=== PATIENT | male | born 1955 | race Caucasian/White ===

== ENCOUNTER 2019-01-31 14:31 | Observation (INO) ==
[2019-01-31] MEDS ORDERED: IPRATROPIUM/ALBUTEROL 3 ML AMPUL.NEB NEB PRN (14:43)
[2019-01-31] MEDS ORDERED: NALOXONE HCL 0.4 MG/ML VIAL IV PRN (14:43)
[2019-01-31] MEDS ORDERED: ONDANSETRON 4 MG/2 ML VIAL IV PRN (14:43)
[2019-01-31] MEDS ORDERED: DEXTROSE 31 GM ORAL.SUSP PO PRN (14:48)
[2019-01-31] MEDS ORDERED: DEXTROSE 50% 50 ML VIAL IV PRN (14:48)
[2019-01-31] MEDS: 0.9 % SODIUM CHLORIDE 10 ML SYRINGE IV SCH ×2 (14:52→22:51)
[2019-01-31] MEDS ORDERED: hydrALAZINE 20 MG/ML VIAL IV PRN (14:58)
[2019-01-31] MEDS ORDERED: FUROSEMIDE 40 MG/4 ML VIAL IV ONE (15:02)
--- NOTE | 2019-01-31 15:02 | Internal Med History&Physical ---
Medical - H&P: [facility] Patient information: Note initiated : 01/31/19 at 2:58 pm Service Date, if different from initiated Date: [] Patient: Dru Burt 63 y/o M admitted on 01/31/19 for Hypertensive Crisis. Chief Complaint: [] History of present illness: Mr. Burt is a 63 year old M with history of hypertension diabetes chronic kidney disease presents to the hospital today from the nephrology clinic for uncontrolled hypertension. 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 The patient has been having progressive swelling in his lower extremities, that has gotten worse over the last 2 weeks. The patient's blood pressure has remained uncontrolled despite using multiple medications, the patient was therefore advised to be hospitalized for evaluation of edema as well as uncontrolled hypertension. The patient denies any headache, no changes in vision no difficulty in swallowing no palpitations no chest pain does have decreased effort tolerance due to lower extremity pain, denies any abdominal pain nausea vomiting denies any problems with bowels, does have increased frequency of micturition. Denies any skin rashes or joint pains new, denies any behavioral issues. He notes he is compliant with his medications. 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) Nausea (Chronic) Lacunar infarction (Chronic) Anxiety (Chronic) Difficulty concentrating (Chronic) Coordination impairments (Chronic) Dizziness (Chronic) Muscle weakness (Chronic) Charcot's joint of left foot (Chronic) White coat hypertension (Chronic) 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) Psoriasis (Chronic) Peripheral neuropathy (Chronic) Gallstones (Chronic) Hyperlipidemia (Chronic) Fecal occult blood test positive (Chronic) Hypertension (Acute) Diabetes mellitus, type II (Chronic) Charcot foot due to diabetes mellitus (Chronic) Chronic renal disease (Chronic) History of MRI of brain and brain stem (Acute) Surgical history: Past Surgical History (Last Reviewed 01/31/19 @ 14:31 by Fabienne Tran MD) S/P hernia repair (Chronic) Hx of appendectomy (Acute) S/P cholecystectomy (Acute) Pertinent family history: Family History (Last Reviewed 01/31/19 @ 14:31 by Fabienne Tran MD) Father Diabetes mellitus, Onset Age: 36 Cardiovascular disease Mother Diabetes mellitus Hypertension Brother No problems noted. Medical - H&P: Meds Home Medications Medication Instructions Recorded Confirmed Type blood sugar diagnostic strips See Dose Instructions .ROUTE 01/13/16 01/08/19 History .MEDSUPPLY pen needle, diabetic 32 gauge x See Dose Instructions .ROUTE 01/13/16 01/08/19 History 5/32" .MEDSUPPLY cholecalciferol (vitamin D3) 5,000 5,000 unit PO QDAY cap 01/14/16 01/31/19 History unit capsule coconut oil (bulk) See Dose Instructions .ROUTE 01/14/16 01/31/19 History .MEDSUPPLY cyanocobalamin (vit B-12) 5,000 500 mcg SUBLINGUAL QDAY 03/16/16 01/31/19 History mcg/mL sublingual drops HYDROcodone/APAP 5/325MG [[place] 1 tab PO Q4HP PRN #14 tab 05/06/18 01/31/19 Rx 5-325Mg] rivaroxaban 20 mg tablet 20 mg PO QDAY 08/31/18 01/31/19 History insulin lispro See Rx Instructions .ROUTE .COMPLEX 10/03/18 01/08/19 History meclizine 25 mg chewable tablet 25 mg PO QDAY PRN 10/03/18 01/31/19 History clopidogrel 75 mg tablet 75 mg PO QDAY 12/04/18 01/31/19 History insulin degludec (U-100) 100 25 unit SUB-Q QPM ml 12/04/18 01/31/19 History unit/mL (3 mL) subcutaneous pen losartan 100 mg tablet 100 mg PO QDAY #30 tab 01/09/19 01/31/19 Rx carvedilol 6.25 mg tablet 6.25 mg PO BID #60 tab 01/18/19 01/31/19 Rx amlodipine 5 mg tablet 5 mg PO QDAY #30 tab 01/31/19 01/31/19 Rx furosemide 20 mg tablet 40 mg PO QDAY #30 tab 01/31/19 01/31/19 Rx hydralazine 50 mg tablet 50 mg PO BID 30 Days #120 tab 01/31/19 01/31/19 Rx Allergies Allergy/AdvReac Type Severity Reaction Status Date / Time codeine [CODEINE] AdvReac Mild ABDOMINAL Verified 01/31/19 14:50 MUSCLE SPASMS hay Allergy Uncoded 01/31/19 15:04 Medical - H&P: Exam - Constitutional Exam: GENERAL: The patient is a well-developed, well-nourished in no apparent distress. Is alert and oriented x3. VITAL SIGNS: Reviewed and as noted elsewhere. HEENT: Head is normocephalic and atraumatic. Extraocular muscles are intact. Pupils are equal, round, and reactive to light. Nares appeared normal. Mouth appears any without lesions. Mucous membranes are moist. NECK: Normal to inspection, Supple, No lymphadenopathy or thyromegaly. LUNGS: Air entry equal on both sides, no wheezing, crackles or rhonchi noted. No accessory muscles of respiration HEART: Regular rate and rhythm normal, S1 and S2 heard, no Gallop, S3 or Rub Noted, No Gross murmur heard. ABDOMEN: Soft, nontender, and nondistended. Positive bowel sounds. No hepatosplenomegaly was noted. EXTREMITIES: No cyanosis, clubbing, rash, edema present +++ NEUROLOGIC: Cranial nerves II through XII are grossly intact. Motor and Sensory System Grossly Intact PSYCHIATRIC: Normal affect, Normal Mood. Appropriate Behavior. SKIN: No ulceration or wounds noted, No jaundice, No rash noted. Medical - H&P: A/P - Narrative A/P Narrative: A/P Hypertensive Urgency/ Uncontrolled Hypertension -Monitor on tele, get labs, bnp, tsh, -resume home meds, although pt notes he is very compliant, will for now resume home meds and get a response. -IV hydralazine prn for high bp -nephrology consulted -Present meds per list, Losartan 100, amolodipine 5mg daily, lasix 40mg, coreg 6.25 bid, hydralazine 50mg bid. -Renal USG done 3 yrs ago had elevated restive indices, but no e/o stenosis -will repeat renal artery doppler. -not sure of other workup for secondary HTN is done, will review with nephrology. CKD -Creat at baseline, nephrology to follow Edema feet/ Acute CHF secondary to uncontrolled HTN - due to uncontrolled HTN, new onset, check bnp, get Chest x ray and echo - no crackles on exam but jvp was raised -IV lasix to be given today DM -SSI insulin for glucose control TIA - started on xareltro by his PCP - also on plavix -resume same, will need to review dose of xarelto, or consider eliquis. HLD Diabetic Neuropathy -Stable, resume home meds DVT - on anticoagulation Full code carb consistent/ renal diet. Social History - Social History marital status: occupational status: employed occupation: [employer] - Tobacco smoking status: Former smoker - Quit Details quit date: 11/28/92 - Alcohol alcohol intake frequency: 0-2 drinks per day - Substance use substance use type: does not use
[2019-01-31 15:25] LABS: Basophils # (Auto) 0 K/mcL (0.0-0.3); Basophils % (Auto) 0.6 % (0.0-2.0); Eosinophils # (Auto) 0.2 K/mcL (0.0-0.7); Eosinophils % (Auto) 3.2 % (0.0-7.0); Granulocytes % (Auto) 54.1 % (38.0-78.0); Lymphocytes # (Auto) 2.4 K/mcL (1.5-4.8); Lymphocytes % (Auto) 33.7 % (15.5-49.0); Mean Cell Volume 83.9 fL (80.0-100.0); Mean Corpuscular HGB Conc 33.6 g/dL (31.0-36.0); Monocytes # (Auto) 0.6 K/mcL (0.1-0.9); Monocytes % (Auto) 8.4 % (1.0-12.0); Platelet Count 218 K/mcL (140-440); RBC 3.28 M/mcL (4.50-5.90); Red Cell Distribution Width 13.7 % (11.5-14.5)
--- NOTE | 2019-01-31 15:47 | XRay Report ---
HISTORY: Congestive heart failure and hypertensive crisis FINDINGS: The heart is upper limits of normal in size and has increased in size since 02/15/09. The pulmonary vessels are mildly engorged. There is no pulmonary edema, pneumonia or pleural effusion. No adenopathy is detected. IMPRESSION: Mild pulmonary vascular congestion Interpreted and Authenticated by: Rickey Ball 01/31/19
[2019-01-31 16:06] LABS: ALT/SGPT 41 U/l (0-40); Albumin/Globulin Ratio 1.3 (1.0-2.3); Alkaline Phosphatase 184 U/L (39-117); Bilirubin,Direct < 0.2 mg/dL (0.0-0.3); Blood Urea Nitrogen 39 mg/dl (8-23); Gamma Glutamyl Transpeptidase 252 U/L (8-61)
[2019-01-31] MEDS ORDERED: hydrALAZINE 20 MG/ML VIAL ONE (17:41)
[2019-01-31] MEDS: hydrALAZINE 20 MG/ML VIAL IV PRN (17:41)
[2019-01-31] MEDS: INSULIN LISPRO 1 UNIT/0.01 ML UNIT SQ SCH ×2 (17:45→20:28)
[2019-01-31] MEDS: DOXAZOSIN 4 MG TABLET PO SCH ×2 (18:41→20:26)
[2019-01-31] MEDS ORDERED: DOXAZOSIN 4 MG TABLET PO SCH (21:00)
[2019-02-01] MEDS: 0.9 % SODIUM CHLORIDE 10 ML SYRINGE IV SCH ×4 (05:21→20:04)
--- NOTE | 2019-02-01 07:43 | Ultrasound Report ---
History: Hypertensive crisis, diabetes, evaluate for renal artery stenosis FINDINGS: There is normal blood flow in the aorta. The visualized portion of the aorta is normal in caliber. There is a large amount of bowel gas throughout the abdomen which makes the study technically difficult. The right kidney measures 5.8 x 5.9 x 12.5 cm and the left measures 5.0 x 5.4 x 11.9 cm. The cortex is normal in thickness bilaterally but there is mild increased echogenicity of the renal parenchyma. Visualized portions of the renal arteries are normal in caliber and have normal flow velocities. Normal interlobar blood flow is also present in both kidneys. The resistive indices are elevated bilaterally. The right-sided ranges from 0.74-0.75. In the left side ranges from 0.75-0.76. IMPRESSION: No evidence renal artery stenosis Chronic medical renal disease with echogenic renal parenchyma and elevated resistive indices bilaterally. Interpreted and Authenticated by: Rickey Ball 02/01/19
[2019-02-01] MEDS: INSULIN LISPRO 1 UNIT/0.01 ML UNIT SQ SCH ×4 (07:53→20:04)
[2019-02-01] MEDS: FUROSEMIDE 40 MG/4 ML VIAL IV SCH ×2 (08:50→15:57)
[2019-02-01] MEDS: CARVEDILOL 6.25 MG TABLET PO SCH ×2 (08:50→17:24)
[2019-02-01 08:51] LABS: Basophils # (Auto) 0 K/mcL (0.0-0.3); Basophils % (Auto) 0.3 % (0.0-2.0); Eosinophils # (Auto) 0.2 K/mcL (0.0-0.7); Eosinophils % (Auto) 2.8 % (0.0-7.0); Granulocytes % (Auto) 55.4 % (38.0-78.0); Lymphocytes # (Auto) 2.2 K/mcL (1.5-4.8); Lymphocytes % (Auto) 33.7 % (15.5-49.0); Mean Cell Volume 85.4 fL (80.0-100.0); Mean Corpuscular HGB Conc 32.8 g/dL (31.0-36.0); Monocytes # (Auto) 0.5 K/mcL (0.1-0.9); Monocytes % (Auto) 7.8 % (1.0-12.0); Platelet Count 205 K/mcL (140-440); RBC 3.16 M/mcL (4.50-5.90); Red Cell Distribution Width 13.6 % (11.5-14.5)
[2019-02-01] MEDS ORDERED: LABETALOL 100 MG TABLET PO SCH (09:00)
[2019-02-01] MEDS ORDERED: amLODIPine 5 MG TABLET PO SCH (09:00)
[2019-02-01] MEDS ORDERED: hydrALAZINE 25 MG TABLET PO SCH (09:00)
[2019-02-01] MEDS: RIVAROXABAN 15 MG TABLET PO SCH (09:07)
[2019-02-01] MEDS: LOSARTAN 50 MG TABLET PO SCH (09:07)
[2019-02-01] MEDS: CYANOCOBALAMIN (VITAMIN B-12) 500 MCG TABLET PO SCH (09:07)
[2019-02-01] MEDS: CLOPIDOGREL 75 MG TABLET PO SCH (09:07)
[2019-02-01 09:10] LABS: ALT/SGPT 31 U/l (0-40); Albumin 3.5 gm/dL (3.2-5.2); Albumin/Globulin Ratio 1.3 (1.0-2.3); Alkaline Phosphatase 164 U/L (39-117); Bilirubin,Direct < 0.2 mg/dL (0.0-0.3); Blood Urea Nitrogen 41 mg/dl (8-23); Gamma Glutamyl Transpeptidase 224 U/L (8-61); Uric Acid 7.6 mg/dL (2.5-8.0)
[2019-02-01] MEDS: hydrALAZINE 20 MG/ML VIAL IV PRN (12:20)
--- NOTE | 2019-02-01 15:56 | Internal Med Progress Note ---
Medical - PN: Subj Patient information: Note initiated : 02/01/19 at 3:53 pm Service Date, if different from initiated Date: [] Patient: Dru Burt 63 y/o M admitted on 01/31/19 for Hypertensive Crisis. Chief Complaint: [] Interval history: Mr. Burt is a 63 year old M with history of hypertension diabetes chronic kidney disease presents to the hospital today from the nephrology clinic for uncontrolled hypertension. 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 The patient has been having progressive swelling in his lower extremities, that has gotten worse over the last 2 weeks. The patient's blood pressure has remained uncontrolled despite using multiple medications, the patient was therefore advised to be hospitalized for evaluation of edema as well as uncontrolled hypertension. The patient denies any headache, no changes in vision no difficulty in swallowing no palpitations no chest pain does have decreased effort tolerance due to lower extremity pain, denies any abdominal pain nausea vomiting denies any problems with bowels, does have increased frequency of micturition. Denies any skin rashes or joint pains new, denies any behavioral issues. He notes he is compliant with his medication 02/01 Patient seen and examined, no acute overnight events patient diuresing well has no new complaints or concerns Echo is negative normal ejection fraction Renal Doppler is normal, no stenosis Patient did not need any IV antihypertensives yesterday night did need one today Home medications resumed monitor for 1 more day anticipate discharge tomorrow Patient started on doxazosin 8 mg at bedtime discontinue oral hydralazine, discontinue oral labetalol given patient is already on Coreg Pertinent ROS: Denies headache, dizziness Denies chest pain, palpitations Denies cough or shortness of breath Denies abdominal pain, nausea or vomiting. - Constitutional Vitals: Vital Signs Temp Resp BP Pulse Ox 97.8 F 16 166/58 94 02/01/19 12:02 02/01/19 12:02 02/01/19 13:00 02/01/19 12:02 Period Temp Pulse Resp BP Sys/Warner Pulse Ox Last 24 Hr 97.8 F-99.2 F 16-18 163-208/49-78 89-98 Intake and Output 03/07/19 03/07/19 03/07/19 05:59 13:59 21:59 Intake Total 420 Output Total 1600 1150 Balance -1600 -730 Intake & Output: Intake & Output 02/01/19 02/01/19 02/01/19 05:59 13:59 21:59 Intake Total 420 Output Total 1600 1150 Balance -1600 -730 Intake: Oral 420 Output: Void Amount 1600 1150 Other: Meal Lunch Percent of Meal Consumed 100% Feeding Ability Independent Urine Appearance Clear Urine Color Bright Yellow Urine Odor Normal Stool Size Copious Stool Color Brown Stool Consistency Soft # Bowel Movements 1 Exam: Constitutional; Afebrile, cooperative, alert, not in distress. Respiratory system: Air Entry equal on both sides, No crackles or wheezing, no rhonchi. CVS- Rate rhythm regular, S1,S2 heard, no gallop, no rub. 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 Medical - PN: Obj Da - Labs CBC & Chem 7: 02/01/19 08:23 02/01/19 08:23 Labs: Abnormal Lab Results 02/01/19 02/01/19 01/31/19 08:23 08:23 14:55 RBC 3.16 L Hgb 8.9 L Hct 27.0 L BUN 41 H 39 H Creatinine 3.3 H 3.1 H Glucose 120 H GGT 224 H 252 H ALT 41 H Alkaline Phosphatase 164 H 184 H NT-Pro-B Natriuret Pep 1664.0 H 01/31/19 14:55 RBC 3.28 L Hgb 9.2 L Hct 27.5 L BUN Creatinine Glucose GGT ALT Alkaline Phosphatase NT-Pro-B Natriuret Pep Meds: Medications Albuterol/Ipratropium (Duoneb) 3 ml NEB Q4HRT PRN PRN Reason: Shortness Of Breath Or Wheezing Amlodipine Besylate (Norvasc) 5 mg PO QDAY [facility]il[facility] ([facility]g) [facility] Last Admin: 02/01/19 08:50 Dose: 6.25 mg Documented by: Clopidogrel Bisulfate (Plavix) 75 mg PO QDAY [facility] Last Admin: 02/01/19 09:07 Dose: 75 mg Documented by: Cyanocobalamin (Vitamin B-12) 500 mcg PO QDAY [facility] Last Admin: 02/01/19 09:07 Dose: 500 mcg Documented by: Dextrose (Dextrose 50%) 0 ml IV UD PRN PRN Reason: Hypoglycemia Diagnostic Test (Pha) (Accu-Chek) 1 each FS [facility] Last Admin: 02/01/19 12:19 Dose: 1 each Documented by: Doxazosin Mesylate (Cardura) 8 mg PO HS [facility] Furosemide (Lasix) 40 mg IV BIDD [facility] Last Admin: 02/01/19 08:50 Dose: 40 mg Documented by: Glucose (Insta-Glucose) 15 gm PO PRN PRN PRN Reason: Hypoglycemia Hydralazine HCl (Apresoline) 10 - 20 mg IV Q4-6HP PRN PRN Reason: Hypertension Last Admin: 02/01/19 12:20 Dose: 10 mg Documented by: Insulin Human Lispro (Humalog) 0 unit SQ [facility]; Protocol Last Admin: 02/01/19 12:20 Dose: 3 units Documented by: Losartan Potassium (Cozaar) 100 mg PO QDAY [facility] Last Admin: 02/01/19 09:07 Dose: 100 mg Documented by: Naloxone HCl (Narcan) 0.1 mg IV Q2MIN PRN PRN Reason: Opiate Reversal Ondansetron HCl (Zofran) 4 mg IV Q4HP PRN PRN Reason: Nausea And Vomiting Last Admin: 01/31/19 22:51 Dose: 4 mg Documented by: Rivaroxaban (Xarelto) 15 mg PO DAILY [facility] Last Admin: 02/01/19 09:07 Dose: 15 mg Documented by: Sodium Chloride (Saline Flush) 10 ml IV Q8 [facility] Last Admin: 02/01/19 12:21 Dose: 10 ml Documented by: Medical - PN: A/P - Time Spent With Patient Total time spent is greater than 50% in coordination of care (as documented) at patient's floor/unit and/or counseling patient: - Narrative A/P Narrative: A/P Hypertensive Urgency/ Uncontrolled Hypertension -Continue to monitor on telemetry IV Lasix to continue patient having good response Started on doxazosin, 4 mg last night 8 mg today discontinue hydralazine as patient is not responding well to this medication, discontinue labetalol as patient is already on Coreg continue amlodipine 5 mg and losartan CKD -Creat at baseline, nephrology to follow Edema feet/ Acute CHF secondary to uncontrolled HTN -Echo shows normal ejection fraction, continue IV Lasix responding well clinically DM -SSI insulin for glucose control TIA - started on xareltro by his PCP - also on plavix Resume Xarelto at 15 mg once a day dose adjusted for renal function. HLD Diabetic Neuropathy -Stable, resume home meds DVT - on anticoagulation Full code carb consistent/ renal diet. Medical - PN: Qual - VTE Deep Vein Thrombosis/Pulmonary Embolism Present on Admission: No
--- NOTE | 2019-02-01 17:19 | Nephrology Progress Note ---
Subjective Patient information: Note initiated : 02/01/19 at 5:15 pm Service Date, if different from initiated Date: [] Patient: Dru Burt 63 y/o M admitted on 01/31/19 for Hypertensive Crisis. Chief Complaint: [] Principal diagnosis: Hypertensive urgency Interval history: [facility] his [facility] issues and he was hospitalised on my request given persistently elevated BP above 200 systolic and worsening fluid status, he was also having ringing in his ear further work up revealed mild HF on CXR and he had 2-3+ edema with 9-10 lb weight gain his home antihypertensives were continued, IV diuretics were started and doxazosin added with some improvement of his BP he denies SOB, this am, no CP denies dizziness no urinary issues echo report pending, renal doppler negative for renal US Pertinent ROS: ABOVE Objective - Vital Signs Vital signs: Vital Signs Temp Resp BP Pulse Ox 02/01/19 15:53 98.4 F 16 173/62 96 02/01/19 13:00 166/58 02/01/19 12:07 182/63 02/01/19 12:02 97.8 F 16 182/63 94 02/01/19 11:59 196/69 02/01/19 07:20 95 02/01/19 07:01 98.8 F 16 177/56 95 02/01/19 06:01 176/59 97 02/01/19 04:29 90 02/01/19 04:01 170/49 89 L 02/01/19 03:31 166/52 94 02/01/19 03:01 180/64 93 02/01/19 02:31 185/65 96 02/01/19 02:01 171/65 95 02/01/19 01:31 165/66 93 02/01/19 01:22 91 02/01/19 01:01 174/67 94 02/01/19 00:31 163/53 94 02/01/19 00:01 177/60 93 01/31/19 23:31 186/71 94 01/31/19 23:01 185/56 92 01/31/19 22:31 166/57 96 01/31/19 22:27 95 01/31/19 22:01 186/66 97 01/31/19 21:31 184/77 97 01/31/19 21:01 174/55 97 01/31/19 20:41 184/70 97 01/31/19 20:31 184/70 96 01/31/19 20:01 99.2 F H 18 186/65 95 01/31/19 20:00 92 01/31/19 19:31 175/67 96 01/31/19 19:01 183/78 96 01/31/19 18:31 176/66 97 01/31/19 18:01 186/68 98 01/31/19 17:31 188/63 96 Intake and Output 02/01/19 02/01/19 02/01/19 05:59 13:59 21:59 Intake Total 420 120 Output Total 1600 1150 375 Balance -5348 -070 -788 Intake: Oral 420 120 Output: Void Amount 1600 1150 375 Other: Meal Lunch Percent of Meal Consumed 100% Feeding Ability Independent Urine Appearance Clear Clear Urine Color Bright Yellow Bright Yellow Urine Odor Normal Normal Stool Size Copious Stool Color Brown Stool Consistency Soft # Bowel Movements 1 Intake & Output: Intake & Output 02/01/19 02/01/19 02/01/19 05:59 13:59 21:59 Intake Total 420 120 Output Total 1600 1150 375 Balance -3079 -619 -086 Intake: Oral 420 120 Output: Void Amount 1600 1150 375 Other: Meal Lunch Percent of Meal Consumed 100% Feeding Ability Independent Urine Appearance Clear Clear Urine Color Bright Yellow Bright Yellow Urine Odor Normal Normal Stool Size Copious Stool Color Brown Stool Consistency Soft # Bowel Movements 1 - General Appearance General appearance: appears started age, chronically ill, frail EENT: mucous membranes moist Neck: no JVD Respiratory: clear Cardiology: no rub, edema, normal S1, normal S2 Gastrointestinal: no tenderness, no guarding Integumentary: warm and dry, hyperpigmentation, chronic venous stasis Neurologic: alert and oriented x3 Musculoskeletal: no erythema, no cyanosis Psychiatric: mood/affect appropriate - Lab 02/01/19 08:23 02/01/19 08:23 Most recent lab results Calcium 9.0 mg/dl (8.6-10.4) 02/01/19 08:23 Phosphorus 4.2 mg/dL (2.7-4.5) 02/01/19 08:23 Magnesium 1.7 mg/dL (1.6-2.5) 03/07/19 08:23 Assessment and Plan (1) Hypertensive urgency Status: Acute (2) CKD (chronic kidney disease), stage IV Status: Acute (3) Anemia Status: Acute - Narrative A/P Narrative: s.creatinine 3.3, egfr is 19ml/min per CKD EPI equation renal function stable for now but has declined overall Uncontrolled HTN: agree with adding doxazosin and holding hydralazine as no response ct IV diuresis given s/o significant fluid excess if HR permits and BP remains elevated will add clonidine low sodium diet will follow along anemia: tsat at 25% when checked on 12/28, b12 normal, serum and urine VALE negative likely from CKD, if BP permits will start aranesp if Hb drops below 9.0 will follow along
[2019-02-01] MEDS ORDERED: DOXAZOSIN 4 MG TABLET PO SCH (21:00)
[2019-02-02] MEDS: 0.9 % SODIUM CHLORIDE 10 ML SYRINGE IV SCH (05:11)
[2019-02-02] MEDS: CARVEDILOL 6.25 MG TABLET PO SCH (07:39)
[2019-02-02] MEDS: hydrALAZINE 20 MG/ML VIAL IV PRN (07:39)
[2019-02-02] MEDS: FUROSEMIDE 40 MG/4 ML VIAL IV SCH (07:39)
[2019-02-02] MEDS: INSULIN LISPRO 1 UNIT/0.01 ML UNIT SQ SCH ×2 (07:40→11:20)
[2019-02-02] MEDS ORDERED: CARVEDILOL 6.25 MG TABLET PO SCH (08:00)
[2019-02-02] MEDS ORDERED: CARVEDILOL 6.25 MG TABLET PO ONE (08:17)
[2019-02-02] MEDS ORDERED: amLODIPine 5 MG TABLET PO SCH (09:00)
[2019-02-02] MEDS: RIVAROXABAN 15 MG TABLET PO SCH (09:09)
[2019-02-02] MEDS: CLOPIDOGREL 75 MG TABLET PO SCH (09:09)
[2019-02-02] MEDS: CYANOCOBALAMIN (VITAMIN B-12) 500 MCG TABLET PO SCH (09:09)
[2019-02-02] MEDS: LOSARTAN 50 MG TABLET PO SCH (09:10)
--- NOTE | 2019-02-02 10:30 | Discharge Summary ---
Medical - DS: Prov Patient information: Note initiated : 02/02/19 at 10:27 am Service Date, if different from initiated Date: [] Patient: Dru Burt 63 y/o M admitted on 01/31/19 for Hypertensive Crisis. Chief Complaint: [] Date of admission: 01/31/19 14:31 Discharge date: 02/02/19 Primary care physician: Wong Maguire Consults: 01/31/19 14:47 Consult to Physician [CONS] Routine Comment: Uncontrolled HTN Consulting Provider: Fabienne Tran Reason For Exam: Physician to Consult Medical - DS: Meds - Discharge Medications Prescriptions: RX: amLODIPine BESYLATE [Amlodipine Besylate] 10 mg PO QDAY #30 tablet RX: Carvedilol [Coreg] 12.5 mg PO BIDCC #60 tablet RX: Doxazosin [Cardura] 8 mg PO HS #60 tablet Active and Home Medications: Home Medications cholecalciferol (vitamin D3) 5,000 unit capsule 5,000 unit PO QDAY cap 01/14/16 [History Confirmed 02/01/19 Last Taken Unknown] cyanocobalamin (vit B-12) 5,000 mcg/mL sublingual drops 500 mcg SUBLINGUAL QDAY 03/16/16 [History Confirmed 02/01/19 Last Taken Unknown] rivaroxaban 20 mg tablet 20 mg PO QDAY 08/31/18 [History Confirmed 01/31/19 Last Taken Unknown] insulin lispro See Rx Instructions .ROUTE .COMPLEX 10/03/18 [History Confirmed 02/01/19 Last Taken Unknown] meclizine 25 mg chewable tablet 25 mg PO QDAY PRN 10/03/18 [History Confirmed 02/01/19 Last Taken Unknown] clopidogrel 75 mg tablet 75 mg PO QDAY 12/04/18 [History Confirmed 01/31/19 Last Taken Unknown] losartan 100 mg tablet 100 mg PO QDAY #30 tab 01/09/19 [Rx Confirmed 01/31/19 Last Taken Unknown] carvedilol 6.25 mg tablet 6.25 mg PO BID #60 tab 01/18/19 [Rx Confirmed 01/31/19 Last Taken Unknown] Labetalol [Trandate] 100 mg PO BID 01/31/19 [History Confirmed 01/31/19 Last Taken Unknown] RX: Furosemide [Lasix] 20 mg PO QDAY 01/31/19 [History Confirmed 01/31/19 Last Taken Unknown] hydralazine 50 mg tablet 50 mg PO BID 30 Days #120 tab 01/31/19 [Rx Confirmed 01/31/19 Last Taken Unknown] RX: amLODIPine BESYLATE [Amlodipine Besylate] 5 mg PO QDAY 02/01/19 [History Confirmed 02/01/19 Last Taken Unknown] Medical - DS: Hosp Hospital course: Mr. Burt is a 63 year old M with history of hypertension diabetes chronic kidney disease presented to the hospital today from the nephrology clinic for uncontrolled hypertension. 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 The patient has been having progressive swelling in his lower extremities, that has gotten worse over the last 2 weeks. The patient's blood pressure has remained uncontrolled despite using multiple medications, the patient was therefore advised to be hospitalized for evaluation of edema as well as uncontrolled hypertension. The patient denies any headache, no changes in vision no difficulty in swallowing no palpitations no chest pain does have decreased effort tolerance due to lower extremity pain, denies any abdominal pain nausea vomiting denies any problems with bowels, does have increased frequency of micturition. Denies any skin rashes or joint pains new, denies any behavioral issues. He notes he is compliant with his medication 02/01 Patient seen and examined, no acute overnight events patient diuresing well has no new complaints or concerns Echo is negative normal ejection fraction Renal Doppler is normal, no stenosis Patient did not need any IV antihypertensives yesterday night did need one today Home medications resumed monitor for 1 more day anticipate discharge tomorrow Patient started on doxazosin 8 mg at bedtime discontinue oral hydralazine, discontinue oral labetalol given patient is already on Coreg 02/02 Pt seen examined, overnight bp remained stable, this AM a bit high, but responded to resumption of home meds Pt stable for discharge In Summary Pt admitted to the hospital for uncontrolled hypertension/ Hypertensive urgency At the time of discharge pt bp is stable He will be discharged on amlodipine 10mg once daily (dose increased from 5mg once daily) Coreg 12.5mg twice daily (dose increased from 6.25mg twice daily) He has been started on doxazosin 8mg at bed time. (new medication) He will continue on losartan 100mg daily continue on lasix 20mg daily, can be increased to 40mg daily as outpatient if edema worsens. We are stopping hydralazine as well as labetalol. I am not sure why the patient is on xarelto, h/o TIA, no h/o afib? that I could see, pt is already on plavix. I am not making any changes to his regime at this time. Defer management to PCP. Discharge diagnosis: Uncontrolled Hypertension - Time Spent with Patient Total time spent providing and/or coordinating discharge services: Greater than 30 minutes Medical - DS: Exam - Constitutional Vitals: Vital Signs Temp Resp BP Pulse Ox 02/02/19 09:21 148/56 02/02/19 07:27 194/65 02/02/19 07:25 98.4 F 16 195/70 95 02/02/19 03:58 168/59 02/02/19 03:56 97.8 F 175/62 95 02/02/19 00:09 98.7 F 18 157/56 97 02/01/19 19:31 98.3 F 18 155/57 98 02/01/19 15:53 98.4 F 16 173/62 96 02/01/19 13:00 166/58 02/01/19 12:07 182/63 02/01/19 12:02 97.8 F 16 182/63 94 02/01/19 11:59 196/69 Intake and Output 02/01/19 02/02/19 02/02/19 21:59 05:59 13:59 Intake Total 360 960 240 Output Total 1075 950 450 Balance -715 10 -210 Intake: Oral 360 960 240 Output: Void Amount 1075 950 450 Other: Meal Dinner Nourishment/Supplement Breakfast Percent of Meal Consumed 100% 100% 100% Feeding Ability Assist with Tray Set Up Independent Independent Nourishment/Supplement name tuna fish sandwich Urine Appearance Clear Clear Clear Urine Color Bright Yellow Bright Yellow Bright Yellow Urine Odor Normal Normal Normal Weight 183 lb 6.4 oz 182 lb 4.8 oz Patient Weight 02/03/19 05:59 Weight 182 lb 4.8 oz Additional comments: Constitutional; Afebrile, cooperative, alert, not in distress. Eyes- No icterus, , No periorbital swelling Ears- Ext ear normal, hearing normal to conversation. Neck- Midline trachea, supple Respiratory system: Air Entry equal on both sides, No crackles or wheezing, no rhonchi. CVS- Rate rhythm regular, S1,S2 heard, no gallop, no rub. Abdomen- Soft nontender abdomen, no organomegaly, no tenderness, no guarding or rigidity, [employer] DEVELOPER- AOOx3, moving all extremities, no gross focal deficit noted. Medical - DS: A/P - Patient/Caregiver Discharge Instructions Activity: increase activity as tolerated Diet: Low Sodium (2gm), Consistent Carbohydrate Additional Instructions: Please follow a low sodium diet, We have made some changes to your Blood pressure medication regime amlodipine 10mg once daily (dose increased from 5mg once daily) Coreg 12.5mg twice daily (dose increased from 6.25mg twice daily) You have been started on doxazosin 8mg at bed time. (new medication) continue on losartan 100mg daily continue on lasix 20mg daily, We are stopping hydralazine as well as labetalol. Follow up with Dr Tran in 1 week for continued management of bp Follow up with Dr Maguire, I am not sure if you need to be on xareltro, also dosing needs to be adjusted for renal function if this is continued, please talk to your PCP with regards to this medication. - Follow up Plan Follow up with: Fabienne Tran MD [Physician] - 02/08/19 1:30 pm Wong Maguire MD [Primary Care Provider] - 02/13/19 9:45 am Disposition: Home, Self-Care Prognosis: Fair Rehab Potential: Fair I certify that the patient requires SNF services: No Overall status at discharge: patient is progressing back to baseline Medical - DS: Qual - VTE Deep Vein Thrombosis/Pulmonary Embolism Present on Admission: No
== END 2019-02-02 12:00 | disposition home or self-care (01) ==
LOC: ICU
PROVIDERS: ADMIT Internal Medicine; ATTEND Internal Medicine

== ENCOUNTER 2019-08-13 10:19 | Inpatient (IN) ==
--- NOTE | 2019-08-13 10:33 | Emergency Department Note ---
Weakness HPI - General Chief complaint: Weakness Stated complaint: falls, weakness Time Seen by Provider: 08/13/19 10:31 Source: patient, family Mode of arrival: wheelchair Limitations: no limitations - History of Present Illness HPI Narrative: Patient comes by private car because of several days of increased weakness, difficulty ambulating with several falls and some confusion. reports that over this past year he has had some gradual decline but on Tuesday 3 days ago he was wobbly on his legs. She went to work. Patient called around 3 PM to tell him that he had fallen and could not get up. This was in the bathroom and he had a sore thigh after this. He had had poor oral intake since she had left him in the morning. 2 days ago, Tuesday, she helped him eat and drink regularly. Yesterday he slept until noon. He got up to leave the bedroom but fell again causing a bruised knee. Because of these changing symptoms, history of a stroke and TIAs etc., patient is brought in for further evaluation here. REVIEW OF SYSTEMS: Denies fever or chills. He has some chronic night sweats. Denies blurry vision, double vision Denies chest pain, palpitations Denies cough, shortness of breath, wheeze Denies abdominal pain, nausea, vomiting, diarrhea, constipation, hematochezia Denies dysuria. He has some chronic nocturia about every 2 hours. Denies back pain Denies headaches, lightheaded/dizziness. Has generalized weakness. No specific unilateral weakness. Denies anxiety. Has some situational depressive characteristics but no long- standing diagnoses or treatment. - Related Data Home Medications Medication Instructions Recorded Confirmed cholecalciferol (vitamin D3) 5,000 5,000 unit PO QDAY cap 01/14/16 07/18/19 unit capsule clopidogrel 75 mg tablet 75 mg PO QDAY 12/04/18 07/18/19 insulin aspart U-100 100 unit/mL 1 each SUB-Q DAILY #15 ml 06/07/19 07/18/19 (3 mL) subcutaneous pen insulin degludec 100 unit/mL (3 20 unit SUB-Q QDAY #15 ml 06/07/19 07/18/19 mL) subcutaneous pen Losartan [Cozaar] 100 mg PO DAILY 06/25/19 07/18/19 amLODIPine BESYLATE [Amlodipine 5 mg PO DAILY 06/25/19 07/18/19 Besylate] Previous Rx's Medication Instructions Recorded clonidine 0.2 mg/24 hr weekly 1 patch TRANSDERMA QWEEK #4 patch 07/18/19 transdermal patch furosemide 40 mg tablet 40 mg PO QDAY #30 tab 07/18/19 sodium bicarbonate 650 mg tablet 1,300 mg PO BID #120 tab 07/18/19 Allergies Allergy/AdvReac Type Severity Reaction Status Date / Time codeine [CODEINE] AdvReac Mild ABDOMINAL Verified 08/13/19 10:24 MUSCLE SPASMS Past Medical History - Past Medical History [facility] Narrative: Medical History (Last Updated 04/12/19 @ 13:43 by Susan Myers MD) Malaise and fatigue (Chronic) Anorexia (Chronic) Confusion (Chronic) Rapid weight loss (Chronic) skilled nursing (current) use of insulin (Chronic) Nausea (Chronic) Lacunar infarction (Chronic) Anxiety (Chronic) Difficulty concentrating (Chronic) Coordination impairments (Chronic) Dizziness (Chronic) Muscle weakness (Chronic) Charcot's joint of left foot (Chronic) White coat hypertension (Chronic) Psoriasis (Chronic) Peripheral neuropathy (Chronic) Gallstones (Chronic) Hyperlipidemia (Chronic) Fecal occult blood test positive (Chronic) Hypertension (Acute) Diabetes mellitus, type II (Chronic) Charcot foot due to diabetes mellitus (Chronic) History of MRI of brain and brain stem (Acute) Past Surgical History (Last Reviewed 02/08/19 @ 14:14 by Fabienne Tran MD) S/P hernia repair (Chronic) Hx of appendectomy (Acute) S/P cholecystectomy (Acute) Family History (Last Reviewed 02/08/19 @ 14:14 by Fabienne Tran MD) Father Diabetes mellitus, Onset Age: 36 Cardiovascular disease Mother Diabetes mellitus Hypertension Brother No problems noted. Medical history: Reports: chronic anticoagulation (Plavix), CVA, DM (Type II, long-standing, insulin using, multiple complications.), hypertension, ELIZABETH (Probable, per but not specifically diagnosed.), peripheral artery disease (Status post angioplasty by Dr. Sommer.), renal disease, TIA, other (Peripheral neuropathy. Charcot foot.). Denies: asthma, atrial fibrillation, cancer, CHF, COPD, DVT, myocardial infarction, PUD, pulmonary embolus Psychiatric history: Denies: anxiety, depression Surgical history ED: Reports: angioplasty/stent (Peripheral, lower extremity, Dr. Sommer, [facility] appendectomy, cholecystectomy - Social History smoking status: Former smoker Alcohol use: Reports: Frequently (Most days a couple of beer) Drug use: Reports: none. Denies: marijuana Physical Exam Limitations: no limitations General appearance: alert, in no apparent distress Head: atraumatic, normocephalic Eye: Present: normal appearance, PERRL, EOMI, miosis (constriction). Absent: sc leral icterus, conjunctival injection ENT: Present: normal oropharynx, mucous membranes dry (mildly) Neck: Present: trachea midline. Absent: lymphadenopathy, thyromegaly Chest: Present: symmetric chest wall rise Respiratory: Present: normal lung sounds bilaterally. Absent: respiratory distress, wheezes, stridor, accessory muscle use, prolonged expiratory phase Cardiovascular: Present: regular rate, normal rhythm. Absent: systolic murmur, diastolic murmur Abdominal: Present: soft. Absent: distention, tenderness, guarding, rebound, rigidity, organomegaly, mass Extremities: Absent: pedal edema, pretibial edema, calf tenderness Back: Absent: CVA tenderness (R), CVA tenderness (L), spinous process tenderness Neurological: Present: alert, oriented X3 Psychiatric: Present: normal affect, normal mood Skin: Present: warm, dry, other (Hemosiderosis type of changes in the skin anterior tibial regions right much more than the left.) Course Vital Signs Temperature 98.2 F 08/13/19 10:19 Respiratory Rate 30 H 08/13/19 10:19 Blood Pressure 174/70 08/13/19 10:19 Pulse Oximetry (%) 96 08/13/19 10:19 Temperature 98.2 F 08/13/19 10:19 Pulse Rate 52 L 08/13/19 12:47 Respiratory Rate 12 08/13/19 12:47 Blood Pressure 199/70 08/13/19 12:47 Pulse Oximetry (%) 97 08/13/19 12:47 Weakness - MDM Narrative Medical decision making narrative: 10:24 AM - initial evaluation with conclusion to go ahead and do CT head without contrast. 1125 approximately - CT scan read as negative for acute bleed or acute changes. Old lacunar basilar bilateral infarcts present as well as a old right frontal parietal. 11:51 AM - patient's health safety engineer is Dr. Myers. I will seek his guidance and/or family court counsellor with a creatinine of 5.3 with his other previous most recent ones 3.4 and 3.3. Patient also has an anemia of 10.0 with his past being in the ranges of 8.6-11. CRP today is 0.8. 11:56 AM - I spoke with Dr. Myers, who suggested if patient can go home we would hold his losartan and furosemide and he would follow-up later in the week. If patient is unable to go home he will consider consulting. We will give patient a liter of fluid to see how he can improve and his stability on his feet. Recently given order for oral losartan 100 and amlodipine 5 because of his blood pressures and he has not had his medications this morning, or change to elim inate the losartan and change to metoprolol 5 mg IV. Pulse currently is 64. Patient has had a previous infusion reaction to hydralazine 12:05 PM - radiologist read of chest x-ray read as normal. 1:35 PM - I just spoke with Dr. Rush, hospitalist, who accepts this patient's care. - Lab Data Lab results reviewed: Yes I reviewed the patient's lab results. Lab results narrative: Patient's troponin of 0.07 is similar to 6 weeks ago 0.05. Most likely due to associated chronic and acute renal failure. Result diagrams: 08/13/19 10:06 08/13/19 10:06 Lab Results 08/13/19 08/13/19 08/13/19 Range/Units 10:06 10:06 10:06 WBC 9.6 (4.5-11.0) K/mcL RBC 3.43 L (4.50-5.90) M/mcL Hgb 10.0 L (13.5-16.5) g/dL Hct 29.3 L (41.0-55.0) % MCV 85.4 (80.0-100.0) fL MCH 29.2 (26.0-34.0) pg MCHC 34.2 (31.0-36.0) g/dL RDW 13.5 (11.5-14.5) % Plt Count 163 (140-440) K/mcL MPV 8.9 (7.4-10.4) fL Total Counted 100 Seg Neutrophils % 52 (38-78) % Band Neutrophils % Not Reportable Lymphocytes % 35 (15-49) % Monocytes % (Manual) 8 (1-12) % Eosinophils % (Manual) 5 (0-7) % Platelet Estimate Normal (NORMAL) RBC Morphology Normal (NORMAL) Sodium 139 (133-145) mmol/L Potassium 4.3 (3.3-5.1) mmol/L Chloride 104 (96-108) mmol/L Carbon Dioxide 22 (22-30) mmol/L Anion Gap 13.0 (8-16) BUN 60 H (8-23) mg/dl Creatinine 5.3 H* (0.7-1.2) mg/dl GFR Calculation 11 Glucose 271 H (70-105) mg/dL Calcium 8.7 (8.6-10.4) mg/dl Total Bilirubin 0.4 (0.0-1.0) mg/dL AST 13 (0-37) U/l ALT 10 (0-40) U/l Alkaline Phosphatase 87 (39-117) U/L Troponin T 0.07 H* (0-0.03) ng/ml C-Reactive Protein (0.0-0.8) mg/dl Total Protein 6.3 (5.9-8.4) gm/dL Albumin 3.5 (3.2-5.2) gm/dL Globulin 2.8 (2.2-3.7) gm/dL Albumin/Globulin Ratio 1.3 (1.0-2.3) 08/13/19 Range/Units 10:06 WBC (4.5-11.0) K/mcL RBC (4.50-5.90) M/mcL Hgb (13.5-16.5) g/dL Hct (41.0-55.0) % MCV (80.0-100.0) fL MCH (26.0-34.0) pg MCHC (31.0-36.0) g/dL RDW (11.5-14.5) % Plt Count (140-440) K/mcL MPV (7.4-10.4) fL Total Counted Seg Neutrophils % (38-78) % Band Neutrophils % Lymphocytes % (15-49) % Monocytes % (Manual) (1-12) % Eosinophils % (Manual) (0-7) % Platelet Estimate (NORMAL) RBC Morphology (NORMAL) Sodium (133-145) mmol/L Potassium (3.3-5.1) mmol/L Chloride (96-108) mmol/L Carbon Dioxide (22-30) mmol/L Anion Gap (8-16) BUN (8-23) mg/dl Creatinine (0.7-1.2) mg/dl GFR Calculation Glucose (70-105) mg/dL Calcium (8.6-10.4) mg/dl Total Bilirubin (0.0-1.0) mg/dL AST (0-37) U/l ALT (0-40) U/l Alkaline Phosphatase (39-117) U/L Troponin T (0-0.03) ng/ml C-Reactive Protein 0.8 (0.0-0.8) mg/dl Total Protein (5.9-8.4) gm/dL Albumin (3.2-5.2) gm/dL Globulin (2.2-3.7) gm/dL Albumin/Globulin Ratio (1.0-2.3) - Radiology Data Radiology results reviewed: Yes I reviewed the patient's radiology results. - EKG Data EKG attestation: Yes There are no EKG findings of acute coronary syndrome, Yes This EKG will be read by wastewater treatment plant supervisor Interpretation: unchanged compared to prior tracing (date) Disposition Pt seen by [employer] SALES ENGINEER/PA only: No Clinical Impression: Hypertensive urgency, Weakness, Confusion Acute on chronic renal failure Qualifiers: Acute renal failure type: unspecified Chronic kidney disease stage: stage 4 (severe) Qualified Code(s): N17.9 - Acute kidney failure, unspecified; N18.4 - Chronic kidney disease, stage 4 (severe) Anemia in CKD (chronic kidney disease) Qualifiers: Chronic kidney disease stage: stage 4 (severe) Qualified Code(s): N18.4 - Chronic kidney disease, stage 4 (severe); D63.1 - Anemia in chronic kidney disease Summary: Patient was given amlodipine in the emergency room. He was given an initial 5 mg of metoprolol but could not go further due to bradycardia. He has had reactions to hydralazine (disorientation). He is already on a clonidine drip. Because of this and his blood pressures going up rather than down i.e. into the systolic 205-215 range, he is to be admitted with a nicardipine drip and Dr. uRsh request this and accepts care of this patient for inpatient further work- up and evaluation. Disposition: Xfer As Inpt ([facility]) Condition: Fair Referrals: Wong Maguire MD [Primary Care Provider] -
--- NOTE | 2019-08-13 10:51 | Cat Scan Report ---
History: Fell, altered level of consciousness, increased weakness, anticoagulated and prior infarcts. TECHNIQUE: The brain was imaged without contrast at 2.5 mm intervals. Radiation exposure was limited using dose reduction technology. FINDINGS: There are multiple old lacunar infarct with encephalomalacia, predominantly involving the basal ganglia. Is also involvement the right frontoparietal boundary. The lateral ventricle. Small infarct is also seen in the left thalamus. These are chronic stable findings with no change since prior study done on 06/25/19. No new infarct is seen. There is no hemorrhage or mass effect or cerebral edema. No abnormal extra-axial fluid collection is present. There is no hemorrhage. Bone windows show no skull fracture. There is mild generalized cerebral atrophy. The ventricles are prominent but proportionate to the atrophy. This also remains stable. IMPRESSION: Stable old lacunar infarcts bilaterally. No evidence of hemorrhage or acute brain injury Dr. Mora was called with the results Interpreted and Authenticated by: Rickey Ball 08/13/19
--- NOTE | 2019-08-13 11:04 | XRay Report ---
HISTORY: Altered mental status, weakness former smoker and fell FINDINGS: The lungs are clear normally expanded. Heart size is normal and there is no pulmonary vascular congestion, adenopathy or pleural effusion. No fracture is seen. There is mild arthritis in the acromioclavicular joints bilaterally. Comparison with the prior exam from 01/31/19 shows the mild pulmonary vascular congestion seen previously has resolved. IMPRESSION: Normal exam Interpreted and Authenticated by: Rickey Ball 08/13/19
[2019-08-13 11:12] LABS: Hematocrit 29.3 % (41.0-55.0); Mean Cell Volume 85.4 fL (80.0-100.0); Mean Corpuscular HGB Conc 34.2 g/dL (31.0-36.0); Mean Platelet Volume 8.9 fL (7.4-10.4); Platelet Count 163 K/mcL (140-440); RBC 3.43 M/mcL (4.50-5.90); Red Cell Distribution Width 13.5 % (11.5-14.5); WBC 9.6 K/mcL (4.5-11.0)
[2019-08-13 11:40] LABS: ALT/SGPT 10 U/l (0-40); AST/SGOT 13 U/l (0-37); Albumin 3.5 gm/dL (3.2-5.2); Albumin/Globulin Ratio 1.3 (1.0-2.3); Alkaline Phosphatase 87 U/L (39-117); Bilirubin,Total 0.4 mg/dL (0.0-1.0); Blood Urea Nitrogen 60 mg/dl (8-23); Calcium 8.7 mg/dl (8.6-10.4); Carbon Dioxide 22 mmol/L (22-30); Chloride 104 mmol/L (96-108); Globulin 2.8 gm/dL (2.2-3.7); Glomerular Filtration Rate 11; Glucose 271 mg/dL (70-105)
[2019-08-13] MEDS ORDERED: 0.9 % SODIUM CHLORIDE 1,000 ML IV ONE (11:44)
[2019-08-13] MEDS ORDERED: METOPROLOL TARTRATE 5 MG/5 ML VIAL IV ONE (11:58)
[2019-08-13] MEDS ORDERED: amLODIPine 5 MG TABLET PO ONE (11:59)
[2019-08-13 12:14] LABS: Eosinophils % (Manual) 5 % (0-7); Lymphocytes % 35 % (15-49); Monocytes % (Manual) 8 % (1-12); Platelet Estimate NORMAL (NORMAL); RBC Morphology NORMAL (NORMAL); Segmented Neutrophils % 52 % (38-78)
[2019-08-13] MEDS ORDERED: niCARdipine 25 MG in 0.9 % SODIUM CHLORIDE 240 ML IV SCH ×2 (13:45→14:59)
[2019-08-13] MEDS ORDERED: 0.9 % SODIUM CHLORIDE 1,000 ML IV SCH ×2 (14:15→14:59)
[2019-08-13] MEDS ORDERED: ACETAMINOPHEN 325 MG TABLET PO PRN (14:59)
[2019-08-13] MEDS ORDERED: DEXTROSE 50% 50 ML VIAL IV PRN (14:59)
[2019-08-13] MEDS ORDERED: DEXTROSE 31 GM ORAL.SUSP PO PRN (14:59)
[2019-08-13] MEDS ORDERED: ONDANSETRON 4 MG/2 ML VIAL IV PRN (14:59)
--- NOTE | 2019-08-13 16:13 | Nephrology Consult Note ---
History of Present Illness - Reason for Consult Patient information: Note initiated : 08/13/19 at 4:11 pm Patient: Dru Burt 63 y/o M admitted on 08/13/19 for falls, weakness. Consult date: 08/13/19 chronic renal failure, accelerated hypertension Requesting physician: Devin Yanes - Chief Complaint Weakness - History of Present Illness Dru Burt is a 63-year-old male with chronic kidney disease stage 5, diabetes mellitus type 2 and hypertension presented to ED for weakness and falls for the past 3 days. He was found to have hypertensive urgency and admitted to ICU on IV nicardipine. Review of Systems Constitutional: frequent falls, lethargy, weakness, no anorexia, no fever(s), no headache(s) Nose, mouth and throat: no nasal congestion, no sore throat Cardiovascular: no chest pain, no palpatations Respiratory: no cough, no dyspnea Gastrointestinal: no abdominal pain, no diarrhea Genitourinary: no dysuria, no hematuria Musculoskeletal: no joint swelling, no neck pain Integumentary: no rash, no wounds Neurological: no confusion, no focal weakness Psychiatric: no anxiety, no panic attacks Endocrine: no cold intolerance, no heat intolerance Hematologic/Lymphatic: no easy bleeding, no easy bruising Allergic/Immunologic: no tongue swelling, no uticaria Past History Past medical history: Medical History (Last Updated 04/12/19 @ 13:43 by Susan Myers MD) Malaise and fatigue (Chronic) Anorexia (Chronic) Confusion (Chronic) Rapid weight loss (Chronic) assisted (current) use of insulin (Chronic) Nausea (Chronic) Lacunar infarction (Chronic) Anxiety (Chronic) Difficulty concentrating (Chronic) Coordination impairments (Chronic) Dizziness (Chronic) Muscle weakness (Chronic) Charcot's joint of left foot (Chronic) White coat hypertension (Chronic) Psoriasis (Chronic) Peripheral neuropathy (Chronic) Gallstones (Chronic) Hyperlipidemia (Chronic) Fecal occult blood test positive (Chronic) Hypertension (Acute) Diabetes mellitus, type II (Chronic) Charcot foot due to diabetes mellitus (Chronic) History of MRI of brain and brain stem (Acute) Past surgical history: Past Surgical History (Last Reviewed 02/08/19 @ 14:14 by Fabienne Tran MD) S/P hernia repair (Chronic) Hx of appendectomy (Acute) S/P cholecystectomy (Acute) Past family history: Family History (Last Reviewed 02/08/19 @ 14:14 by Fabienne Tran MD) Father Diabetes mellitus, Onset Age: 36 Cardiovascular disease Mother Diabetes mellitus Hypertension Brother No problems noted. Past social history: Former smoker Medications and Allergies Home Medications Medication Instructions Recorded Confirmed Type cholecalciferol (vitamin D3) 5,000 5,000 unit PO QDAY cap 01/14/16 07/18/19 History unit capsule clopidogrel 75 mg tablet 75 mg PO QDAY 12/04/18 08/13/19 History insulin aspart U-100 100 unit/mL 1 each SUB-Q TIDAC #15 ml 06/07/19 08/13/19 History (3 mL) subcutaneous pen insulin degludec 100 unit/mL (3 20 unit SUB-Q HS #15 ml 06/07/19 08/13/19 History mL) subcutaneous pen amLODIPine BESYLATE [Amlodipine 10 mg PO DAILY 06/25/19 08/13/19 History Besylate] clonidine 0.2 mg/24 hr weekly 1 patch TRANSDERMA QWEEK #4 patch 07/18/19 08/13/19 Rx transdermal patch furosemide 40 mg tablet 40 mg PO QDAY #30 tab 07/18/19 08/13/19 Rx sodium bicarbonate 650 mg tablet 1,300 mg PO BID #120 tab 07/18/19 08/13/19 Rx Doxazosin [Cardura] 8 mg PO HS 08/13/19 08/13/19 History Losartan [Cozaar] 25 mg PO DAILY 08/13/19 08/13/19 History hydrALAZINE [Apresoline] 25 mg PO TID 08/13/19 08/13/19 History Allergies Allergy/AdvReac Type Severity Reaction Status Date / Time codeine [CODEINE] AdvReac Mild ABDOMINAL Verified 08/13/19 10:24 MUSCLE SPASMS Exam - Vital Signs Vital signs: Temp Pulse Resp BP Pulse Ox 98.2 F 65 12 160/62 94 08/13/19 15:10 08/13/19 15:10 08/13/19 15:10 08/13/19 15:28 08/13/19 15:10 - General Appearance General appearance: appears started age, fatigue EENT: mucous membranes moist Neck: supple Respiratory: clear Cardiology: no edema Gastrointestinal: no tenderness Integumentary: no rash, warm and dry Neurologic: no focal deficit, alert and oriented x3 Musculoskeletal: no deformities Psychiatric: mood/affect appropriate, cooperative Results - Lab Results 08/13/19 10:06 08/13/19 10:06 Most recent lab results Calcium 8.7 mg/dl (8.6-10.4) 08/13/19 10:06 Assessment and Plan (1) Hypertensive urgency Home medications: Amlodipine 5 mg twice daily Losartan 100 mg daily Clonidine 0.2 mg patch weekly Furosemide 40 mg daily Could not tolerate Hydralazine in the past Recommendations: SBP goal 140-160 Titrate off Nicardipine Continue Amlodipine 10 mg daily, Losartan 100 mg daily, Clonidine 0.2 mg patch weekly, Furosemide 40 mg daily Add Doxazosin or Labetalol if needed Status: Acute Priority: High (2) Chronic kidney disease, stage 5 Chronic kidney disease stage 5 with persistent nephrotic range proteinuria. No uremic symptoms. Recommendations: No urgent acute hemodialysis need. Anticipated need for DECISION SUPPORT MANAGER discussed. Outpatient hemodialysis will be initiated in the next few weeks. Sodium Bicarbonate 1300 mg twice daily resumed for metabolic acidosis. Status: Chronic Priority: Medium
--- NOTE | 2019-08-13 16:24 | Internal Med History&Physical ---
Medical - H&P: [facility] Patient information: Note initiated : 08/13/19 at 4:19 pm Service Date, if different from initiated Date: [] Patient: Dru Burt 63 y/o M admitted on 08/13/19 for falls, weakness. Chief Complaint: [] Chief complaint: Weakness and fall History of present illness: Mr. Burt is a 63 year old M With a history of DM type II, stage V CKD managed by nephrology as outpatient. Patient presents today with worsening weakness fatigue that has evolved over the last few days. He has experienced intermittent falls and this morning patient while trying to get up lost consciousness but fortunately did not sustain major injuries. He was subsequently brought into the ER. Symptoms have evolved over the last 1 week progressing from full functionality to inability to get out of bed or feed himself. His came back from work to notice that he did not even have the strength to eat his meals. He denies associated nausea, diarrhea, dysuria or abdominal pain. He denies chest pain palpitation unilateral weakness headache vertigo or dizziness. He feels extremely weak lethargic complains of loss of appetite. He denies pruritus, rash, joint pain or tremors. He further denies using [id number] NSAIDs, herbal supplements or missing regular medications. Initial work-up in the ER was consistent with acute on chronic renal failure with a creatinine 5.3. Troponin elevation at 0.07. Patient was confused lethargic and hypertensive over 220. He was started on metoprolol/ nicardipine drip. Nephrology was consulted in light of hypertensive crisis/acute renal [facility] service was requested for admission At the time of evaluation patient is accompanied with his Carlee. He was able to answer some of the questions. He endorses to history as above. 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 (Chronic) Nausea (Chronic) Lacunar infarction (Chronic) Anxiety (Chronic) Difficulty concentrating (Chronic) Coordination impairments (Chronic) Dizziness (Chronic) Muscle weakness (Chronic) Charcot's joint of left foot (Chronic) White coat hypertension (Chronic) Psoriasis (Chronic) Peripheral neuropathy (Chronic) Gallstones (Chronic) Hyperlipidemia (Chronic) Fecal occult blood test positive (Chronic) Hypertension (Acute) Diabetes mellitus, type II (Chronic) Charcot foot due to diabetes mellitus (Chronic) History of MRI of brain and brain stem (Acute) Surgical History S/P hernia repair (Chronic) Bilateral hernia repair Hx of appendectomy (Acute) 12/2012 S/P cholecystectomy (Acute) 05/2014-Dr Moe Family History Father , at 36 Diabetes mellitus, Onset Age: 36 Cardiovascular disease at 36 Mother , Age 77 Diabetes mellitus Hypertension Brother , infancy No problems noted. Social History marital status: occupational status: employed occupation: [employer] smoking status: Former smoker quit date: 11/28/92 alcohol intake frequency: 0-2 drinks per day substance use type: does not use Smoking status: Former smoker (Quit smoking 1992) Medical - H&P: Meds Home Medications Medication Instructions Recorded Confirmed Type cholecalciferol (vitamin D3) 5,000 5,000 unit PO QDAY cap 01/14/16 08/13/19 History unit capsule clopidogrel 75 mg tablet 75 mg PO QDAY 12/04/18 08/13/19 History insulin aspart U-100 100 unit/mL 1 each SUB-Q TIDAC #15 ml 06/07/19 08/13/19 History (3 mL) subcutaneous pen insulin degludec 100 unit/mL (3 20 unit SUB-Q HS #15 ml 06/07/19 08/13/19 History mL) subcutaneous pen amLODIPine BESYLATE [Amlodipine 10 mg PO DAILY 06/25/19 08/13/19 History Besylate] clonidine 0.2 mg/24 hr weekly 1 patch TRANSDERMA QWEEK #4 patch 07/18/19 08/13/19 Rx transdermal patch furosemide 40 mg tablet 40 mg PO QDAY #30 tab 07/18/19 08/13/19 Rx sodium bicarbonate 650 mg tablet 1,300 mg PO BID #120 tab 07/18/19 08/13/19 Rx Doxazosin [Cardura] 8 mg PO HS 08/13/19 08/13/19 History Losartan [Cozaar] 25 mg PO DAILY 08/13/19 08/13/19 History hydrALAZINE [Apresoline] 25 mg PO TID 08/13/19 08/13/19 History Allergies Allergy/AdvReac Type Severity Reaction Status Date / Time codeine [CODEINE] AdvReac Mild ABDOMINAL Verified 08/13/19 10:24 MUSCLE SPASMS Medical - H&P: Exam - Constitutional Vitals: Temp Pulse Resp BP Pulse Ox 98.2 F 65 12 160/62 94 08/13/19 15:10 08/13/19 15:10 08/13/19 15:10 08/13/19 15:28 08/13/19 15:10 General appearance: average body habitus, no acute distress Exam: Fatigue lethargic but cooperative Head normocephalic Oral cavity dry No ear nose discharge Eye movement symmetrical No lymphadenopathy S1-S2 regular rhythm Diminished breath sounds bases Abdomen soft nontender Lower extremity bilateral stasis changes/excoriated skin but no cyanosis clubb ing or joint swelling Skin no suspicious lesion Psych fatigue lethargic but cooperative Neuro nonfocal Medical - H&P: Reslt - Labs CBC & Chem 7: 08/14/19 04:00 08/14/19 04:00 Labs: Short CBC 08/13/19 Range/Units 10:06 WBC 9.6 (4.5-11.0) K/mcL Hgb 10.0 L (13.5-16.5) g/dL Hct 29.3 L (41.0-55.0) % Plt Count 163 (140-440) K/mcL BMP 08/13/19 10:06 Sodium 139 Potassium 4.3 Chloride 104 Carbon Dioxide 22 BUN 60 H Creatinine 5.3 H* Glucose 271 H Calcium 8.7 Cardiac Enzymes 08/13/19 Range/Units 10:06 Troponin T 0.07 H* (0-0.03) ng/ml Liver Function 08/13/19 Range/Units 10:06 Total Bilirubin 0.4 (0.0-1.0) mg/dL AST 13 (0-37) U/l ALT 10 (0-40) U/l Alkaline Phosphatase 87 (39-117) U/L Albumin 3.5 (3.2-5.2) gm/dL Medical - H&P: A/P - Narrative A/P Narrative: * Acute on chronic kidney disease-nephrology consulted. Creatinine 5.3. Will be managed as per nephrology * Hypertensive crisis with acute renal failure/encephalopathy/elevated tro ponins-Target systolics lowering 20%. Continue nicardipine drip until further recommendations from nephrology * Acute encephalopathy secondary to hypertensive crisis endorgan dysfunction. Negative head CT for acute process of bleed * Elevated troponin likely secondary to chronic disease. Trend serial troponins. No evidence of chest pain or ACS. Likely demand ischemia from hypertensive crisis * DM type II continue basal prandial insulin * History of lacunar CVA/CAD continue Plavix * Full code * Prophylaxis heparin Plan * Inpatient admission in light of hypertensive crisis * ICU admit * Nicardipine drip * Serial troponin * Close neuro checks * ESRD management per nephrology Critical care time spent in excess of 35 minutes in addition to time spent on history and physical.
[2019-08-13] MEDS: 0.9 % SODIUM CHLORIDE 10 ML SYRINGE IV SCH ×2 (17:09→20:56)
[2019-08-13] MEDS: INSULIN LISPRO 1 UNIT/0.01 ML UNIT SQ SCH ×2 (17:25→20:56)
[2019-08-13] MEDS: SODIUM BICARBONATE 650 MG TABLET PO SCH (20:38)
[2019-08-13] MEDS: HEPARIN 5,000 UNIT/ML VIAL SQ SCH (20:38)
[2019-08-13] MEDS: CYANOCOBALAMIN (VITAMIN B-12) 500 MCG TABLET PO SCH (20:38)
[2019-08-13] MEDS: SENNOSIDES/DOCUSATE SODIUM 1 TAB TABLET PO SCH (20:39)
[2019-08-13] MEDS: DOCUSATE SODIUM 100 MG CAPSULE PO SCH (20:39)
[2019-08-13] MEDS: niCARdipine 25 MG in 0.9 % SODIUM CHLORIDE 240 ML IV SCH (23:35)
[2019-08-14 04:53] LABS: Hemoglobin 8.8 g/dL (13.5-16.5); Mean Cell Volume 85.5 fL (80.0-100.0); Mean Corpuscular HGB Conc 33.9 g/dL (31.0-36.0); Mean Platelet Volume 9.3 fL (7.4-10.4); Platelet Count 149 K/mcL (140-440); RBC 3.04 M/mcL (4.50-5.90); Red Cell Distribution Width 13.6 % (11.5-14.5); WBC 7.1 K/mcL (4.5-11.0)
[2019-08-14 05:06] LABS: ALT/SGPT 8 U/l (0-40); AST/SGOT 11 U/l (0-37); Albumin 2.9 gm/dL (3.2-5.2); Albumin/Globulin Ratio 1.2 (1.0-2.3); Alkaline Phosphatase 75 U/L (39-117); Bilirubin,Direct < 0.2 mg/dL (0.0-0.3); Bilirubin,Total 0.2 mg/dL (0.0-1.0); Blood Urea Nitrogen 52 mg/dl (8-23); Calcium 8.1 mg/dl (8.6-10.4); Carbon Dioxide 20 mmol/L (22-30); Chloride 109 mmol/L (96-108); Globulin 2.5 gm/dL (2.2-3.7); Glomerular Filtration Rate 12; Glucose 219 mg/dL (70-105); Lactate Dehydrogenase 208 U/L (94-250); Phosphorous 4.2 mg/dL (2.7-4.5); Triglycerides 401 mg/dl (<150); Uric Acid 8.6 mg/dL (2.5-8.0)
--- NOTE | 2019-08-14 05:13 | Nephrology Progress Note ---
Subjective Patient information: Note initiated : 08/14/19 at 5:10 am Patient: Dru Burt 63 y/o M admitted on 08/13/19 for falls, weakness. Chief Complaint: Weakness Pertinent ROS: Weakness No confusion No headache No chest pain No edema Feels better Objective - Vital Signs Vital signs: Vital Signs Temp Pulse Pulse Resp BP BP Pulse Ox 08/14/19 02:46 156/67 08/14/19 02:31 161/63 08/14/19 02:16 141/106 08/14/19 02:01 15 144/57 08/14/19 01:46 152/57 08/14/19 01:31 151/64 08/14/19 01:16 151/60 08/14/19 01:01 16 156/60 08/14/19 00:46 157/60 08/14/19 00:31 144/53 08/14/19 00:16 15 151/59 08/14/19 00:01 98.1 F 15 154/61 99 08/13/19 23:46 160/59 08/13/19 23:37 16 163/65 08/13/19 23:16 164/61 08/13/19 23:01 15 159/61 08/13/19 22:46 155/64 08/13/19 22:31 161/63 08/13/19 22:16 18 164/63 08/13/19 22:01 165/64 08/13/19 21:46 167/57 08/13/19 21:31 168/73 08/13/19 21:16 157/122 08/13/19 21:01 159/64 08/13/19 20:46 158/71 08/13/19 20:31 160/67 08/13/19 20:16 16 163/65 98 08/13/19 20:01 98.8 F 164/69 08/13/19 20:00 98 08/13/19 19:31 62 173/66 98 08/13/19 19:16 60 166/67 99 08/13/19 19:01 61 169/67 98 08/13/19 18:46 65 159/64 98 08/13/19 18:31 65 141/68 98 08/13/19 18:29 64 99 08/13/19 18:16 66 150/69 98 08/13/19 18:01 66 12 153/62 99 08/13/19 17:56 64 100 08/13/19 17:46 98.1 F 62 146/60 93 08/13/19 17:31 65 153/111 98 08/13/19 17:16 63 152/65 98 08/13/19 17:13 62 97 08/13/19 17:01 63 148/65 98 08/13/19 16:46 64 159/64 99 08/13/19 16:31 65 149/64 100 08/13/19 16:16 67 160/68 100 08/13/19 16:01 63 151/67 100 08/13/19 15:46 64 144/88 98 08/13/19 15:32 98.9 F 72 16 159/71 100 08/13/19 15:28 160/62 08/13/19 15:19 159/60 08/13/19 15:10 98.2 F 65 12 160/62 94 08/13/19 15:06 98.2 F 63 12 153/111 99 08/13/19 15:01 65 12 159/60 94 08/13/19 14:50 61 12 144/61 95 08/13/19 14:31 62 10 L 152/56 95 08/13/19 14:17 60 9 L 186/63 96 08/13/19 14:02 57 L 13 207/69 97 08/13/19 13:47 57 L 11 L 212/68 96 08/13/19 13:32 53 L 11 L 212/71 94 08/13/19 13:16 17 210/86 08/13/19 13:02 54 L 13 194/70 96 08/13/19 12:47 52 L 12 199/70 97 08/13/19 12:32 52 L 12 198/69 96 08/13/19 12:17 52 L 13 200/72 95 08/13/19 12:02 61 12 218/79 95 08/13/19 11:47 62 13 216/70 95 08/13/19 11:31 61 14 222/77 96 08/13/19 11:16 58 L 12 196/72 96 08/13/19 11:15 57 L 12 196/72 97 08/13/19 11:01 57 L 13 189/64 96 08/13/19 10:46 59 L 13 197/74 96 08/13/19 10:41 60 13 194/67 96 08/13/19 10:25 65 13 174/70 96 08/13/19 10:19 98.2 F 30 H 174/70 96 Intake and Output 08/13/19 08/13/19 08/14/19 13:59 21:59 05:59 Intake Total 2043 65 Output Total 775 500 Balance 1268 -435 Intake: IV 1683 65 Sodium Chloride 0.9% 1,000 ml @ 1475 500 mls/hr IV .Q2H SHAILA Rx#: [id number] Cardene 25 MG In Sodium 208 65 Chloride 0.9% 240 ml @ 5 MG/HR 50 mls/hr IV Q10H SHAILA Rx#: [id number] Oral 360 Output: Void Amount 225 500 Urine/Stool Mix 550 Other: Meal Dinner HS snack Percent of Meal Consumed 100% 100% Feeding Ability Independent Independent Urine Appearance Clear Clear Urine Color Pale Bright Yellow Weight 170 lb 171 lb 1.6 oz Patient Weight 08/14/19 05:59 Weight 171 lb 1.6 oz Intake & Output: Intake & Output 08/13/19 08/13/19 08/14/19 13:59 21:59 05:59 Intake Total 2043 65 Output Total 775 500 Balance 1268 -435 Weight 170 lb 171 lb 1.6 oz Intake: IV 1683 65 Sodium Chloride 0.9% 1,000 ml @ 1475 500 mls/hr IV .Q2H SHAILA Rx#: [id number] Cardene 25 MG In Sodium 208 65 Chloride 0.9% 240 ml @ 5 MG/HR 50 mls/hr IV Q10H SHAILA Rx#: [id number] Oral 360 Output: Void Amount 225 500 Urine/Stool Mix 550 Other: Meal Dinner HS snack Percent of Meal Consumed 100% 100% Feeding Ability Independent Independent Urine Appearance Clear Clear Urine Color Pale Bright Yellow - General Appearance General appearance: appears started age, fatigue EENT: mucous membranes moist Neck: supple Respiratory: clear Cardiology: no edema Gastrointestinal: no tenderness Integumentary: no rash, warm and dry Neurologic: no focal deficit, alert and oriented x3 Musculoskeletal: no deformities Psychiatric: mood/affect appropriate, cooperative - Lab 08/14/19 04:00 08/14/19 04:00 Most recent lab results Calcium 8.1 mg/dl (8.6-10.4) L 08/14/19 04:00 Phosphorus 4.2 mg/dL (2.7-4.5) 08/14/19 04:00 Magnesium 1.7 mg/dL (1.6-2.5) 08/14/19 04:00 Assessment and Plan (1) Chronic kidney disease, stage 5 Dru Burt is a 63-year-old male with chronic kidney disease stage 5, diabetes mellitus type 2 and hypertension presented to ED for weakness and falls for the past 3 days. He was found to have hypertensive urgency and admitted to ICU on IV nicardipine. Chronic kidney disease stage 5 with persistent nephrotic range proteinuria. No uremic symptoms. Progress: Serum creatinine decreased from 5.3 to 4.7 with eGFR of 12. Hyperchloremic metabolic acidosis associated with NS infusions, receiving Sodium Bicarbonate 1300 mg twice daily. Anemia due to chronic kidney disease. Recommendations: No urgent acute hemodialysis need. Anticipated need for PROFESSOR OF BIOLOGY discussed. Outpatient hemodialysis will be initiated in the next few weeks. Status: Chronic Priority: Medium (2) Hypertensive urgency Home medications: Amlodipine 5 mg twice daily, Losartan 100 mg daily, Clonidine 0.2 mg patch weekly and Furosemide 40 mg daily. He could not tolerate Hydralazine in the past. Progress: Troponin T elevation without rising trend. Recommendations: SBP goal 140-160 Titrate off Nicardipine Continue Amlodipine 10 mg daily, Losartan 100 mg daily, Clonidine 0.2 mg patch weekly, Furosemide 40 mg daily Add Doxazosin or Labetalol if needed Status: Acute Priority: High
[2019-08-14] MEDS: 0.9 % SODIUM CHLORIDE 10 ML SYRINGE IV SCH ×2 (05:44→13:04)
[2019-08-14 05:58] LABS: Eosinophils % (Manual) 2 % (0-7); Lymphocytes % 38 % (15-49); Monocytes % (Manual) 7 % (1-12); Platelet Estimate NORMAL (NORMAL); RBC Morphology NORMAL (NORMAL); Segmented Neutrophils % 53 % (38-78)
[2019-08-14] MEDS: niCARdipine 25 MG in 0.9 % SODIUM CHLORIDE 240 ML IV SCH ×2 (06:41→20:08)
[2019-08-14] MEDS: INSULIN LISPRO 1 UNIT/0.01 ML UNIT SQ SCH ×4 (07:45→21:29)
[2019-08-14] MEDS: HEPARIN 5,000 UNIT/ML VIAL SQ SCH ×2 (08:35→21:29)
[2019-08-14] MEDS: MULTIVIT,THER IRON,CA,FA & MIN 1 TABLET PO SCH (08:36)
[2019-08-14] MEDS: THIAMINE 100 MG TABLET PO SCH (08:36)
[2019-08-14] MEDS: CYANOCOBALAMIN (VITAMIN B-12) 500 MCG TABLET PO SCH ×2 (08:36→21:28)
[2019-08-14] MEDS: LOSARTAN 50 MG TABLET PO SCH (08:37)
[2019-08-14] MEDS: FUROSEMIDE 40 MG TABLET PO SCH (08:38)
[2019-08-14] MEDS: CLOPIDOGREL 75 MG TABLET PO SCH (08:38)
[2019-08-14] MEDS: amLODIPine 10 MG TABLET PO SCH (08:39)
[2019-08-14] MEDS: SODIUM BICARBONATE 650 MG TABLET PO SCH ×2 (08:39→21:28)
[2019-08-14] MEDS: FOLIC ACID 1 MG TABLET PO SCH (08:39)
[2019-08-14] MEDS: DOCUSATE SODIUM 100 MG CAPSULE PO SCH ×2 (08:57→21:29)
--- NOTE | 2019-08-14 09:46 | Internal Med Progress Note ---
Medical - PN: Subj Patient information: Note initiated : 08/14/19 at 9:44 am Service Date, if different from initiated Date: [] Patient: Dru Burt 63 y/o M admitted on 08/13/19 for falls, weakness. Chief Complaint: [] Interval history: Mr. Burt is a 63 year old M With a history of DM type II, stage V CKD managed by nephrology as outpatient. Patient presents today with worsening weakness fatigue that has evolved over the last few days. He has experienced intermittent falls and this morning patient while trying to get up lost consciousness but fortunately did not sustain major injuries. He was subseque ntly brought into the ER. Symptoms have evolved over the last 1 week progressing from full functionality to inability to get out of bed or feed himself. His came back from work to notice that he did not even have the strength to eat his meals. He denies associated nausea, diarrhea, dysuria or abdominal pain. He denies chest pain palpitation unilateral weakness headache vertigo or dizziness. He feels extremely weak lethargic complains of loss of appetite. He denies pruritus, rash, joint pain or tremors. He further denies using [id number] NSAIDs, herbal supplements or missing r egular medications. Initial work-up in the ER was consistent with acute on chronic renal failure wi th a creatinine 5.3. Troponin elevation at 0.07. Patient was confused lethargic and hypertensive over 220. He was started on metoprolol/ nicardipine drip. Nephrology was consulted in light of hypertensive crisis/acute renal failure Hospitalist service was requested for admission At the time of evaluation patient is accompanied with his Carlee. He was able to answer some of the questions. He endorses to history as above. 08/14-patient doing well. No overnight events. No concerns per staff. No fever chills nausea vomiting. Creatinine down to 4.7. Titrating nicardipine drip down. Systolics around 140. Anticipate discharge in 24 to 48 hours with optimization of renal function and outpatient follow-up with nephrology. Continue PT OT/nutrition support. Mental status back to baseline. Serial troponins downtrending. - Constitutional Vitals: Vital Signs Temp Pulse Resp BP Pulse Ox 98.9 F 62 17 151/66 99 08/14/19 04:01 08/13/19 19:31 08/14/19 06:01 08/14/19 09:31 08/14/19 05:01 Period Temp Pulse Resp BP Sys/Warner Pulse Ox Last 24 Hr 98.1 F-98.9 F 52-72 9-30 114-222/53-122 93-100 Intake and Output 08/13/19 08/14/19 08/14/19 21:59 05:59 13:59 Intake Total 2043 65 267 Output Total 775 500 Balance 1268 -435 267 Weight 171 lb 1.6 oz Intake & Output: Intake & Output 08/13/19 08/14/19 08/14/19 21:59 05:59 13:59 Intake Total 2043 65 267 Output Total 775 500 Balance 1268 -435 267 Weight 171 lb 1.6 oz Intake: IV 1683 65 267 Sodium Chloride 0.9% 1,000 ml @ 1475 500 mls/hr IV .Q2H [facility] Rx#: [id number] Cardene 25 MG In Sodium 208 65 267 Chloride 0.9% 240 ml @ 5 MG/HR 50 mls/hr IV Q10H [facility] Rx#: [id number] Oral 360 Output: Void Amount 225 500 Urine/Stool Mix 550 Other: Meal Dinner HS snack Percent of Meal Consumed 100% 100% Feeding Ability Independent Independent Urine Appearance Clear Clear Urine Color Pale Bright Yellow General appearance: no acute distress Exam: Alert oriented and much improved mental status Nonlabored breathing No anxiety Regular rhythm No lymphedema Lower extremity stasis changes with skin excoriation Medical - PN: Obj Da - Labs CBC & Chem 7: 08/14/19 04:00 08/14/19 04:00 Labs: Abnormal Lab Results 08/14/19 08/14/19 08/14/19 04:00 04:00 04:00 RBC 3.04 L Hgb 8.8 L Hct 26.0 L Chloride 109 H Carbon Dioxide 20 L BUN 52 H Creatinine 4.7 H Glucose 219 H Uric Acid 8.6 H Calcium 8.1 L Troponin T 0.05 H* Total Protein 5.4 L Albumin 2.9 L Triglycerides 401 H 08/13/19 08/13/19 08/13/19 17:55 10:06 10:06 RBC Hgb Hct Chloride Carbon Dioxide BUN 60 H Creatinine 5.3 H* Glucose 271 H Uric Acid Calcium Troponin T 0.06 H* 0.07 H* Total Protein Albumin Triglycerides 08/13/19 10:06 RBC 3.43 L Hgb 10.0 L Hct 29.3 L Chloride Carbon Dioxide BUN Creatinine Glucose Uric Acid Calcium Troponin T Total Protein Albumin Triglycerides Meds: Medications Acetaminophen (Tylenol) 650 mg PO Q4-6HP PRN PRN Reason: PAIN/FEVER > 101 Amlodipine Besylate (Norvasc) 10 mg PO DAILY [facility] Last Admin: 08/14/19 08:39 Dose: 10 mg Documented by: Clonidine HCl (Catapres Tts 2) 1 patch TD Q7D@1000 [facility] Clopidogrel Bisulfate (Plavix) 75 mg PO QDAY [facility] Last Admin: 08/14/19 08:38 Dose: 75 mg Documented by: Cyanocobalamin (Vitamin B-12) 1,000 mcg PO BID [facility] Stop: 08/18/19 09:01 Last Admin: 08/14/19 08:36 Dose: 1,000 mcg Documented by: Dextrose (Dextrose 50%) 0 ml IV UD PRN PRN Reason: Hypoglycemia Diagnostic Test (Pha) (Accu-Chek) 1 each FS [facility] Last Admin: 08/14/19 07:45 Dose: 1 each Documented by: Docusate Sodium (Colace) 100 mg PO BID [facility] Last Admin: 08/14/19 08:57 Dose: Not Given Documented by: Doxazosin Mesylate (Cardura) 8 mg PO [facility] Folic Acid (Folic Acid) 1 mg PO DAILY [facility] Last Admin: 08/14/19 08:39 Dose: 1 mg Documented by: Furosemide (Lasix) 40 mg PO DAILY [facility] Last Admin: 08/14/19 08:38 Dose: 40 mg Documented by: Glucose (Insta-Glucose) 15 gm PO PRN PRN PRN Reason: Hypoglycemia Heparin Sodium (Porcine) (Heparin) 5,000 unit SQ Q12 [facility] Last Admin: 08/14/19 08:35 Dose: 5,000 unit Documented by: Nicardipine HCl 25 mg/ Sodium (Chloride) 250 mls @ 50 mls/hr IV Q10H [facility]; Protocol Last Titration: 08/14/19 08:50 Dose: 0 mg/hr, 0 mls/hr Documented by: Insulin Glargine (Lantus) 20 unit SQ [facility] Insulin Human Lispro (Humalog) 0 unit SQ [facility]; Protocol Last Admin: 08/14/19 07:45 Dose: 3 units Documented by: Iron Carb/Multivit/Skip Operator/Folic Acid (Multivitamin W/Minerals) 1 tab PO DAILY [facility] Last Admin: 08/14/19 08:36 Dose: 1 tab Documented by: Losartan Potassium (Cozaar) 100 mg PO DAILY [facility] Last Admin: 08/14/19 08:37 Dose: 100 mg Documented by: Ondansetron HCl (Zofran) 4 mg IV Q4-6HP PRN PRN Reason: Nausea And Vomiting Senna/Docusate Sodium (Senna Plus Tablet) 1 tab PO HS [facility] Last Admin: 08/13/19 20:39 Dose: Not Given Documented by: Sodium Bicarbonate (Sodium Bicarbonate) 1,300 mg PO BID [facility] Last Admin: 08/14/19 08:39 Dose: 1,300 mg Documented by: Sodium Chloride (Saline Flush) 10 ml IV Q8 [facility] Last Admin: 08/14/19 05:44 Dose: Not Given Documented by: Thiamine HCl (Vitamin B1) 100 mg PO DAILY [facility] Last Admin: 08/14/19 08:36 Dose: 100 mg Documented by: Medical - PN: A/P - Time Spent With Patient Total time spent is greater than 50% in coordination of care (as documented) at patient's floor/unit and/or counseling patient: 25 - 35 minutes - Narrative A/P Narrative: * Acute on chronic kidney disease-nephrology on board. Creatinine downtrending. Continue management per nephrology * Hypertensive crisis with acute renal failure/encephalopathy/elevated troponins-clinically improved. Systolics at goal at 140. Troponins downtrending. Mental status change resolved. Nephrology initiated on oral antihypertensives and up titrating to goal * Acute encephalopathy secondary to hypertensive crisis endorgan dysfunction. Clinically resolved and back at baseline. Negative head CT for acute process of bleed * Elevated troponin likely secondary to chronic disease. Downtrending serial troponin. Continue Plavix * DM type II continue basal prandial insulin * History of lacunar CVA/CAD continue Plavix * Full code * Prophylaxis heparin Plan * Continue hypertension management per nephrology * Wean nicardipine drip * Pre-existing well condition management on home meds * ESRD management per nephrology * Possible discharge in 24 to 48 hours
[2019-08-14] MEDS ORDERED: amLODIPine 5 MG TABLET PO ONE (11:50)
[2019-08-14] MEDS ORDERED: LOSARTAN 50 MG TABLET PO ONE (11:51)
[2019-08-14] MEDS: DOXAZOSIN 1 MG TABLET PO SCH ×2 (16:09→21:28)
[2019-08-14] MEDS: LABETALOL 100 MG TABLET PO SCH ×2 (19:33→21:38)
[2019-08-14] MEDS ORDERED: DOXAZOSIN 4 MG TABLET PO SCH (21:00)
[2019-08-14] MEDS: SENNOSIDES/DOCUSATE SODIUM 1 TAB TABLET PO SCH (21:28)
[2019-08-14] MEDS: INSULIN GLARGINE, HUMAN 1 UNIT/0.01 ML SQ SCH (21:30)
[2019-08-15] MEDS: 0.9 % SODIUM CHLORIDE 10 ML SYRINGE IV SCH ×4 (00:29→21:43)
[2019-08-15] MEDS: niCARdipine 25 MG in 0.9 % SODIUM CHLORIDE 240 ML IV SCH ×3 (04:55→16:24)
[2019-08-15 06:48] LABS: Hematocrit 26.8 % (41.0-55.0); Hemoglobin 9.2 g/dL (13.5-16.5); Mean Cell Volume 84.8 fL (80.0-100.0); Mean Corpuscular HGB Conc 34.3 g/dL (31.0-36.0); Mean Platelet Volume 9.8 fL (7.4-10.4); Platelet Count 151 K/mcL (140-440); RBC 3.16 M/mcL (4.50-5.90); Red Cell Distribution Width 13.4 % (11.5-14.5); WBC 8.1 K/mcL (4.5-11.0)
[2019-08-15] MEDS ORDERED: DOXAZOSIN 1 MG TABLET PO ONE (07:00)
[2019-08-15 07:16] LABS: ALT/SGPT 8 U/l (0-40); AST/SGOT 13 U/l (0-37); Albumin/Globulin Ratio 1.2 (1.0-2.3); Alkaline Phosphatase 72 U/L (39-117); Bilirubin,Direct < 0.2 mg/dL (0.0-0.3); Bilirubin,Total 0.2 mg/dL (0.0-1.0); Blood Urea Nitrogen 49 mg/dl (8-23); Calcium 7.9 mg/dl (8.6-10.4); Carbon Dioxide 20 mmol/L (22-30); Chloride 107 mmol/L (96-108); Globulin 2.6 gm/dL (2.2-3.7); Glomerular Filtration Rate 12; Glucose 207 mg/dL (70-105); Lactate Dehydrogenase 245 U/L (94-250); Phosphorous 4.3 mg/dL (2.7-4.5); Triglycerides 382 mg/dl (<150); Uric Acid 7.8 mg/dL (2.5-8.0)
--- NOTE | 2019-08-15 08:02 | Nephrology Progress Note ---
Subjective Patient information: Note initiated : 08/15/19 at 8:00 am Patient: Dru Burt 63 y/o M admitted on 08/13/19 for falls, weakness. Chief Complaint: Weakness Pertinent ROS: Weakness No headache No chest pain No edema Objective - Vital Signs Vital signs: Vital Signs Temp Pulse Pulse Resp BP BP Pulse Ox 08/15/19 07:01 151/57 08/15/19 06:31 142/56 08/15/19 06:01 149/54 08/15/19 05:31 149/53 08/15/19 05:01 150/56 08/15/19 05:00 66 16 150/56 08/15/19 04:31 143/53 08/15/19 04:01 155/61 08/15/19 04:00 98.8 F 67 155/61 08/15/19 03:31 157/57 08/15/19 03:01 139/52 08/15/19 03:00 98.5 F 65 16 139/52 08/15/19 02:31 141/52 08/15/19 02:01 145/51 08/15/19 02:00 65 145/51 08/15/19 01:31 161/58 08/15/19 01:01 154/62 08/15/19 01:00 98.8 F 67 16 154/62 95 08/15/19 00:46 157/59 08/15/19 00:33 156/66 08/15/19 00:29 76 156/66 08/15/19 00:16 149/53 08/15/19 00:01 153/51 08/15/19 00:00 99 F 74 14 153/51 96 08/14/19 23:46 159/55 08/14/19 23:31 158/57 08/14/19 23:16 158/57 08/14/19 23:15 98 F 16 158/57 08/14/19 23:01 163/54 08/14/19 23:00 99.2 F H 71 16 158/57 96 08/14/19 22:46 156/59 08/14/19 22:31 160/60 08/14/19 22:16 139/62 08/14/19 22:15 163/54 08/14/19 22:01 185/67 09/17/19 22:00 72 163/54 08/14/19 21:46 200/68 08/14/19 21:31 191/63 08/14/19 21:16 183/60 08/14/19 21:01 178/60 08/14/19 21:00 71 139/62 08/14/19 20:46 173/66 08/14/19 20:31 187/66 08/14/19 20:16 184/64 08/14/19 20:01 183/65 08/14/19 19:46 177/62 08/14/19 19:31 173/66 08/14/19 19:16 196/64 08/14/19 19:01 172/63 08/14/19 18:46 98.9 F 186/66 08/14/19 18:31 183/69 08/14/19 18:16 182/66 08/14/19 18:12 177/66 08/14/19 18:01 195/68 08/14/19 17:46 179/75 08/14/19 17:31 198/75 08/14/19 17:16 186/72 08/14/19 17:01 196/74 08/14/19 16:46 191/73 08/14/19 16:31 174/69 08/14/19 16:19 68 100 08/14/19 16:17 179/77 08/14/19 16:01 182/69 08/14/19 15:46 97.7 F 14 191/70 100 08/14/19 15:44 181/69 08/14/19 15:31 191/71 08/14/19 15:16 172/73 08/14/19 15:01 178/69 08/14/19 14:45 181/71 08/14/19 14:01 179/67 08/14/19 13:46 185/73 08/14/19 13:31 164/70 08/14/19 13:16 179/66 08/14/19 13:01 170/73 08/14/19 12:46 171/71 08/14/19 12:31 173/92 08/14/19 12:16 181/68 08/14/19 12:02 97.9 F 15 182/64 97 08/14/19 11:47 168/82 08/14/19 11:31 183/70 09/17/19 11:16 158/125 08/14/19 11:01 182/68 08/14/19 10:46 169/66 08/14/19 10:31 178/66 08/14/19 10:16 182/60 08/14/19 10:02 165/69 08/14/19 09:31 151/66 08/14/19 09:16 153/103 08/14/19 09:01 154/94 08/14/19 08:46 134/60 08/14/19 08:31 123/64 08/14/19 08:16 139/64 08/14/19 08:01 131/99 Intake and Output 08/14/19 08/15/19 08/15/19 21:59 05:59 13:59 Intake Total 240 0 Output Total 950 100 200 Balance -710 -100 -200 Intake: IV 0 Cardene 25 MG In Sodium 0 Chloride 0.9% 240 ml @ 5 MG/HR 50 mls/hr IV Q10H [facility] Rx#: [id number] Oral 240 Output: Void Amount 950 100 200 Other: Meal Dinner Percent of Meal Consumed 100% Feeding Ability Assist with Tray Set Up Urine Appearance Clear Clear Clear Urine Color Pale Pale Pale Bright Yellow Urine Odor Normal Normal Normal Weight 173 lb 11.2 oz Intake & Output: Intake & Output 08/14/19 08/15/19 08/15/19 21:59 05:59 13:59 Intake Total 240 0 Output Total 950 100 200 Balance -710 -100 -200 Weight 173 lb 11.2 oz Intake: IV 0 Cardene 25 MG In Sodium 0 Chloride 0.9% 240 ml @ 5 MG/HR 50 mls/hr IV Q10H [facility] Rx#: [id number] Oral 240 Output: Void Amount 950 100 200 Other: Meal Dinner Percent of Meal Consumed 100% Feeding Ability Assist with Tray Set Up Urine Appearance Clear Clear Clear Urine Color Pale Pale Pale Bright Yellow Urine Odor Normal Normal Normal - General Appearance General appearance: appears started age, fatigue EENT: mucous membranes moist Neck: supple Respiratory: clear Cardiology: no edema, regular rate, regular rhythm Gastrointestinal: no tenderness Integumentary: no rash, warm and dry Neurologic: no focal deficit, alert and oriented x3 Musculoskeletal: no deformities Psychiatric: mood/affect appropriate, cooperative - Lab 08/15/19 03:50 08/15/19 03:50 Most recent lab results Calcium 7.9 mg/dl (8.6-10.4) L 08/15/19 03:50 Phosphorus 4.3 mg/dL (2.7-4.5) 08/15/19 03:50 Magnesium 1.7 mg/dL (1.6-2.5) 08/15/19 03:50 Assessment and Plan (1) Chronic kidney disease, stage 5 Dru Burt is a 63-year-old male with chronic kidney disease stage 5, diabetes mellitus type 2 and hypertension presented to ED for weakness and falls for the past 3 days. He was found to have hypertensive urgency and admitted to ICU on IV nicardipine. Chronic kidney disease stage 5 with persistent nephrotic range proteinuria. No uremic symptoms. Progress: Serum creatinine increased from 4.7 to 4.9 with eGFR of 12. Hyperchloremic metabolic acidosis associated with NS infusions, receiving Sodium Bicarbonate 1300 mg twice daily. Anemia due to chronic kidney disease. Recommendations: No urgent acute hemodialysis need. Anticipated need for [employer] discussed. Outpatient hemodialysis will be initiated in the next few weeks. Status: Chronic Priority: Medium (2) Hypertensive urgency Home medications: Amlodipine 5 mg twice daily, Losartan 100 mg daily, Clonidine 0.2 mg patch weekly and Furosemide 40 mg daily. He could not tolerate Hydralazine in the past. Progress: Still requiring Nicardipine drip Treatment: Amlodipine 10 mg daily, Losartan 100 mg daily, Clonidine 0.2 mg patch weekly, Furosemide 40 mg daily, Doxazosin 2 mg at bedtime, Labetalol 200 mg twice daily Nicardipine drip at 2.5 Recommendations: SBP goal 140-160 Doxazosin 2 mg now then 4 mg at bedtime, Labetalol 300 mg twice daily Titrate off Nicardipine Holding Spironolactone due to very low eGFR Status: Acute Priority: High
[2019-08-15 08:12] LABS: Band Neutrophils % 2 % (0-10); Eosinophils % (Manual) 2 % (0-7); Lymphocytes % 36 % (15-49); Monocytes % (Manual) 5 % (1-12); Platelet Estimate NORMAL (NORMAL); RBC Morphology NORMAL (NORMAL); Segmented Neutrophils % 55 % (38-78)
[2019-08-15] MEDS: HEPARIN 5,000 UNIT/ML VIAL SQ SCH ×2 (08:37→21:41)
[2019-08-15] MEDS: INSULIN LISPRO 1 UNIT/0.01 ML UNIT SQ SCH ×4 (08:37→21:41)
[2019-08-15] MEDS: MULTIVIT,THER IRON,CA,FA & MIN 1 TABLET PO SCH (08:39)
[2019-08-15] MEDS: CLOPIDOGREL 75 MG TABLET PO SCH (08:40)
[2019-08-15] MEDS: FUROSEMIDE 40 MG TABLET PO SCH (08:40)
[2019-08-15] MEDS: FOLIC ACID 1 MG TABLET PO SCH (08:40)
[2019-08-15] MEDS: amLODIPine 10 MG TABLET PO SCH (08:40)
[2019-08-15] MEDS: THIAMINE 100 MG TABLET PO SCH (08:40)
[2019-08-15] MEDS: SODIUM BICARBONATE 650 MG TABLET PO SCH ×2 (08:40→21:42)
[2019-08-15] MEDS: LOSARTAN 50 MG TABLET PO SCH (08:40)
[2019-08-15] MEDS: DOCUSATE SODIUM 100 MG CAPSULE PO SCH ×2 (09:00→21:43)
[2019-08-15] MEDS ORDERED: LABETALOL 100 MG TABLET PO SCH ×2 (09:00→21:00)
[2019-08-15] MEDS: CYANOCOBALAMIN (VITAMIN B-12) 500 MCG TABLET PO SCH ×2 (10:56→21:41)
--- NOTE | 2019-08-15 11:02 | Internal Med Progress Note ---
Medical - PN: Subj Patient information: Note initiated : 08/15/19 at 10:59 am Service Date, if different from initiated Date: [] Patient: Dru Burt 63 y/o M admitted on 08/13/19 for falls, weakness. Chief Complaint: [] Interval history: Mr. Burt is a 63 year old M With a history of DM type II, stage V CKD managed by nephrology as outpatient. Patient presents today with worsening weakness fatigue that has evolved over the last few days. He has experienced intermittent falls and this morning patient while trying to get up lost consciousness but fortunately did not sustain major injuries. He was subsequ ently brought into the ER. Symptoms have evolved over the last 1 week progressing from full functionality to inability to get out of bed or feed himself. His came back from work to notice that he did not even have the strength to eat his meals. He denies associated nausea, diarrhea, dysuria or abdominal pain. He denies chest pain palpitation unilateral weakness headache vertigo or dizziness. He feels extremely weak lethargic complains of loss of appetite. He denies pruritus, rash, joint pain or tremors. He further denies using [id number] NSAIDs, herbal supplements or missing regular medications. Initial work-up in the ER was consistent with acute on chronic renal failure w ith a creatinine 5.3. Troponin elevation at 0.07. Patient was confused lethargic and hypertensive over 220. He was started on metoprolol/ nicardipine drip. Nephrology was consulted in light of hypertensive crisis/acute renal failure Hospitalist service was requested for admission At the time of evaluation patient is accompanied with his Carlee. He was able to answer some of the questions. He endorses to history as above. 08/14-patient doing well. No overnight events. No concerns per staff. No fever chills nausea vomiting. Creatinine down to 4.7. Titrating nicardipine drip down. Systolics around 140. Anticipate discharge in 24 to 48 hours with optimization of renal function and outpatient follow-up with nephrology. Continue PT OT/nutrition support. Mental status back to baseline. Serial troponins downtrending. 08/15-overnight systolics around 200 requiring nicardipine drip. Currently being titrated as per nephrology recommendations. Creatinine 4.9. Nephrology on board. Patient feels better since previous day. No family at bedside. No telemetry events. No other concerns expressed to nursing staff - Constitutional Vitals: Vital Signs Temp Pulse Resp BP Pulse Ox 98.0 F 66 14 167/56 98 08/15/19 08:01 08/15/19 05:00 08/15/19 08:01 08/15/19 10:01 08/15/19 08:08 Period Temp Pulse Resp BP Sys/Warner Pulse Ox Last 24 Hr 97.7 F-99.2 F 65-76 14-16 134-200/51-125 95-100 Intake and Output 08/14/19 08/15/19 08/15/19 21:59 05:59 13:59 Intake Total 240 0 300 Output Total 950 100 400 Balance -710 -100 -100 Weight 173 lb 11.2 oz Intake & Output: Intake & Output 08/14/19 08/15/19 08/15/19 21:59 05:59 13:59 Intake Total 240 0 300 Output Total 950 100 400 Balance -710 -100 -100 Weight 173 lb 11.2 oz Intake: IV 0 Cardene 25 MG In Sodium 0 Chloride 0.9% 240 ml @ 5 MG/HR 50 mls/hr IV Q10H [facility] Rx#: [id number] Oral 240 300 Output: Void Amount 950 100 400 Other: Meal Dinner Breakfast Percent of Meal Consumed 100% 100% Feeding Ability Assist with Tray Set Up Independent Urine Appearance Clear Clear Clear Urine Color Pale Pale Pale Bright Yellow Urine Odor Normal Normal Normal General appearance: no acute distress Exam: Alert oriented Unlabored breathing No anxiety Nondistended abdomen No telemetry events Medical - PN: Obj Da - Labs CBC & Chem 7: 08/15/19 03:50 08/15/19 03:50 Labs: Abnormal Lab Results 08/15/19 08/15/19 08/14/19 03:50 03:50 04:00 RBC 3.16 L Hgb 9.2 L Hct 26.8 L Chloride Carbon Dioxide 20 L BUN 49 H Creatinine 4.9 H Glucose 207 H Uric Acid Calcium 7.9 L Troponin T 0.05 H* Total Protein 5.6 L Albumin 3.0 L Triglycerides 382 H 08/14/19 08/14/19 08/13/19 04:00 04:00 17:55 RBC 3.04 L Hgb 8.8 L Hct 26.0 L Chloride 109 H Carbon Dioxide 20 L BUN 52 H Creatinine 4.7 H Glucose 219 H Uric Acid 8.6 H Calcium 8.1 L Troponin T 0.06 H* Total Protein 5.4 L Albumin 2.9 L Triglycerides 401 H 08/13/19 08/13/19 08/13/19 10:06 10:06 10:06 RBC 3.43 L Hgb 10.0 L Hct 29.3 L Chloride Carbon Dioxide BUN 60 H Creatinine 5.3 H* Glucose 271 H Uric Acid Calcium Troponin T 0.07 H* Total Protein Albumin Triglycerides Meds: Medications Acetaminophen (Tylenol) 650 mg PO Q4-6HP PRN PRN Reason: PAIN/FEVER > 101 Amlodipine Besylate (Norvasc) 10 mg PO DAILY [facility] Last Admin: 08/15/19 08:40 Dose: 10 mg Documented by: Clonidine HCl (Catapres Tts 2) 1 patch TD Q7D@1000 [facility] Clopidogrel Bisulfate (Plavix) 75 mg PO QDAY [facility] Last Admin: 08/15/19 08:40 Dose: 75 mg Documented by: Cyanocobalamin (Vitamin B-12) 1,000 mcg PO BID [facility] Stop: 08/18/19 09:01 Last Admin: 08/15/19 10:56 Dose: 1,000 mcg Documented by: Dextrose (Dextrose 50%) 0 ml IV UD PRN PRN Reason: Hypoglycemia Diagnostic Test (Pha) (Accu-Chek) 1 each FS ACHS [facility] Last Admin: 08/15/19 07:31 Dose: 1 each Documented by: Docusate Sodium (Colace) 100 mg PO BID [facility] Last Admin: 08/15/19 09:00 Dose: Not Given Documented by: Doxazosin Mesylate (Cardura) 4 mg PO [facility] Folic Acid (Folic Acid) 1 mg PO DAILY [facility] Last Admin: 08/15/19 08:40 Dose: 1 mg Documented by: Furosemide (Lasix) 40 mg PO DAILY [facility] Last Admin: 08/15/19 08:40 Dose: 40 mg Documented by: Glucose (Insta-Glucose) 15 gm PO PRN PRN PRN Reason: Hypoglycemia Heparin Sodium (Porcine) (Heparin) 5,000 unit SQ Q12 [facility] Last Admin: 08/15/19 08:37 Dose: 5,000 unit Documented by: Nicardipine HCl 25 mg/ Sodium (Chloride) 250 mls @ 50 mls/hr IV Q10H [facility]; Protocol Last Admin: 08/15/19 05:15 Dose: 2.5 mg/hr, 25 mls/hr Documented by: Insulin Glargine (Lantus) 20 unit SQ [facility] Last Admin: 08/14/19 21:30 Dose: 20 units Documented by: Insulin Human Lispro (Humalog) 0 unit SQ [facility]; Protocol Last Admin: 08/15/19 08:37 Dose: 3 units Documented by: Iron Carb/Multivit/[place]/Folic Acid (Multivitamin W/Minerals) 1 tab PO DAILY [facility] Last Admin: 08/15/19 08:39 Dose: 1 tab Documented by: Labetalol HCl (Trandate) 300 mg PO BID [facility] Last Admin: 08/15/19 08:38 Dose: 300 mg Documented by: Losartan Potassium (Cozaar) 100 mg PO DAILY [facility] Last Admin: 08/15/19 08:40 Dose: 100 mg Documented by: Ondansetron HCl (Zofran) 4 mg IV Q4-6HP PRN PRN Reason: Nausea And Vomiting Senna/Docusate Sodium (Senna Plus Tablet) 1 tab PO [facility] Last Admin: 08/14/19 21:28 Dose: 1 tab Documented by: Sodium Bicarbonate (Sodium Bicarbonate) 1,300 mg PO BID [facility] Last Admin: 08/15/19 08:40 Dose: 1,300 mg Documented by: Sodium Chloride (Saline Flush) 10 ml IV Q8 [facility] Last Admin: 08/15/19 05:44 Dose: Not Given Documented by: Thiamine HCl (Vitamin B1) 100 mg PO DAILY [facility] Last Admin: 08/15/19 08:40 Dose: 100 mg Documented by: Medical - PN: A/P - Time Spent With Patient Total time spent is greater than 50% in coordination of care (as documented) at patient's floor/unit and/or counseling patient: 25 - 35 minutes - Narrative A/P Narrative: * Hypertensive crisis with acute renal failure/encephalopathy/elevated troponins-clinically improved. Systolics improving on nicardipine drip. Further titration/antihypertensive management as per nephrology. * Acute on chronic kidney disease-nephrology on board. Creatinine 4.9, managed per nephrology * Acute encephalopathy secondary to hypertensive crisis endorgan dysfunction. Clinically resolved with improvement in systolics. * Elevated troponin - Downtrending serial troponin secondary demand ischemia from hypertensive crisis. Continue Plavix * DM type II continue basal prandial insulin * History of lacunar CVA/CAD continue Plavix * Full code * Prophylaxis heparin Plan * Continue hypertension management per nephrology * Pre-existing well condition management on home meds * ESRD management per nephrology
[2019-08-15] MEDS ORDERED: SPIRONOLACTONE 25 MG TABLET PO SCH (12:00)
[2019-08-15] MEDS ORDERED: cloNIDine TTS 3 1 PATCH PATCH TD SCH (12:00)
[2019-08-15] MEDS ORDERED: DOXAZOSIN 1 MG TABLET PO SCH (21:00)
[2019-08-15] MEDS ORDERED: DOXAZOSIN 4 MG TABLET PO SCH (21:00)
[2019-08-15] MEDS: INSULIN GLARGINE, HUMAN 1 UNIT/0.01 ML SQ SCH (21:42)
[2019-08-15] MEDS: SENNOSIDES/DOCUSATE SODIUM 1 TAB TABLET PO SCH (21:43)
[2019-08-15] MEDS ORDERED: LABETALOL 100 MG TABLET PO ONE (23:17)
[2019-08-15] MEDS: hydrALAZINE 25 MG TABLET PO SCH (23:34)
[2019-08-16] MEDS: niCARdipine 25 MG in 0.9 % SODIUM CHLORIDE 240 ML IV SCH ×4 (00:43→20:00)
--- NOTE | 2019-08-16 05:36 | Nephrology Progress Note ---
Subjective Patient information: Note initiated : 08/16/19 at 5:32 am Patient: Dru Burt 63 y/o M admitted on 08/13/19 for falls, weakness. Chief Complaint: Weakness Pertinent ROS: Weakness No headache No chest pain No edema Objective - Vital Signs Vital signs: Vital Signs Temp Pulse Resp BP Pulse Ox 08/16/19 04:06 67 98 08/16/19 04:01 98.2 F 67 20 158/67 97 08/16/19 03:46 65 156/58 98 08/16/19 03:36 66 98 08/16/19 03:31 64 159/55 96 08/16/19 03:16 64 162/61 97 08/16/19 03:01 67 18 165/60 96 08/16/19 02:46 66 165/62 96 08/16/19 02:36 68 163/60 95 08/16/19 02:31 72 166/61 96 08/16/19 02:26 66 166/63 95 08/16/19 02:21 69 174/64 96 08/16/19 02:18 68 174/71 98 08/16/19 02:01 67 20 195/70 98 08/16/19 01:34 67 96 08/16/19 01:32 68 188/68 98 08/16/19 01:01 67 174/75 98 08/16/19 00:31 67 198/77 96 08/16/19 00:01 98.9 F 69 22 179/68 95 08/15/19 23:31 72 182/63 95 08/15/19 23:01 72 185/63 96 08/15/19 22:31 73 187/62 97 08/15/19 22:01 72 178/61 97 18 21:31 69 179/65 98 08/15/19 21:01 66 181/67 97 08/15/19 20:31 62 174/61 95 08/15/19 20:01 61 178/63 98 08/15/19 19:59 97.7 F 62 178/83 98 18 19:31 149/60 08/15/19 19:01 161/61 18/19 18:31 152/65 08/15/19 18:03 140/63 08/15/19 18:02 140/63 09/18/19 17:31 154/65 09/18/19 17:29 141/87 08/15/19 17:26 112/49 08/15/19 17:01 175/63 08/15/19 16:31 167/64 08/15/19 16:01 164/62 08/15/19 16:00 98.4 F 98 08/15/19 15:31 166/64 08/15/19 15:01 161/66 08/15/19 14:31 167/57 08/15/19 14:01 150/63 08/15/19 13:55 142/61 08/15/19 13:36 116/50 08/15/19 13:31 137/62 08/15/19 13:01 129/57 08/15/19 12:31 102/55 08/15/19 12:28 118/57 08/15/19 12:01 120/55 08/15/19 11:31 98.2 F 16 161/59 96 08/15/19 11:01 160/64 08/15/19 10:31 151/63 08/15/19 10:01 167/56 08/15/19 09:31 156/59 08/15/19 09:01 150/62 08/15/19 08:31 134/63 08/15/19 08:08 98 08/15/19 08:01 98.0 F 14 154/55 08/15/19 07:31 153/58 08/15/19 07:01 151/57 08/15/19 06:31 142/56 08/15/19 06:01 149/54 Intake and Output 08/15/19 08/15/19 08/16/19 13:59 21:59 05:59 Intake Total 480 600 280 Output Total 650 675 520 Balance -170 -75 -240 Intake: IV 180 Cardene 25 MG In Sodium 180 Chloride 0.9% 240 ml @ 5 MG/HR 50 mls/hr IV Q10H [facility] Rx#: [id number] Oral 300 600 280 Output: Void Amount 650 675 520 Other: Meal Breakfast Dinner Percent of Meal Consumed 100% 100% Feeding Ability Independent Independent Urine Appearance Clear Clear Clear Urine Color Pale Pale Pale Urine Odor Normal Normal Stool Size Large Stool Color Brown Stool Consistency Luz Maria Loose # Bowel Movements 1 Weight 172 lb 2 oz Patient Weight 08/16/19 05:59 Weight 172 lb 2 oz Intake & Output: Intake & Output 08/15/19 08/15/19 08/16/19 13:59 21:59 05:59 Intake Total 480 600 280 Output Total 650 675 520 Balance -170 -75 -240 Weight 172 lb 2 oz Intake: IV 180 Cardene 25 MG In Sodium 180 Chloride 0.9% 240 ml @ 5 MG/HR 50 mls/hr IV Q10H [facility] Rx#: [id number] Oral 300 600 280 Output: Void Amount 650 675 520 Other: Meal Breakfast Dinner Percent of Meal Consumed 100% 100% Feeding Ability Independent Independent Urine Appearance Clear Clear Clear Urine Color Pale Pale Pale Urine Odor Normal Normal Stool Size Large Stool Color Brown Stool Consistency Luz Maria Loose # Bowel Movements 1 - General Appearance General appearance: appears started age, fatigue EENT: mucous membranes moist Respiratory: clear Cardiology: no edema, regular rate, regular rhythm Gastrointestinal: no tenderness Integumentary: no rash, warm and dry Neurologic: no focal deficit, alert and oriented x3 Musculoskeletal: no deformities Psychiatric: mood/affect appropriate, cooperative - Lab 08/16/19 03:50 08/16/19 03:50 Most recent lab results Calcium 7.9 mg/dl (8.6-10.4) L 08/15/19 03:50 Phosphorus 4.3 mg/dL (2.7-4.5) 08/15/19 03:50 Magnesium 1.7 mg/dL (1.6-2.5) 08/15/19 03:50 Assessment and Plan (1) Chronic kidney disease, stage 5 Dru Burt is a 63-year-old male with chronic kidney disease stage 5, diabetes mellitus type 2 and hypertension presented to ED for weakness and falls for the past 3 days. He was found to have hypertensive urgency and admitted to ICU on IV nicardipine. Chronic kidney disease stage 5 with persistent nephrotic range proteinuria. No uremic symptoms. Progress: Serum creatinine 4.7 with eGFR 12, stable. Hyperchloremic metabolic acidosis associated with NS infusions, receiving Sodium Bicarbonate 1300 mg twice daily. Anemia due to chronic kidney disease. Recommendations: No urgent acute hemodialysis need. Anticipated need for [employer] discussed. Outpatient hemodialysis will be initiated in the next few weeks. Status: Chronic Priority: Medium (2) Hypertensive urgency Resistant hypertension with hypertensive urgency. Previous work up: Renal Doppler US on 01/31/19: No evidence of renal artery stenosis. Chronic medical renal disease with echogenic renal parenchyma and elevated resistive indices bilaterally. Renal US on 05/19/18: Hyperechoic kidneys indicative of medical renal disease. Large post void residual with diffuse urinary bladder wall thickening which t ypically indicates chronic bladder outlet narrowing (enlarged prostate etc.) or neurogenic bladder. Renal Doppler US on 03/26/16: Both main renal, segmental and interlobular arteries are widely patent. Resistive indices measured throughout the parenchyma of both kidneys are slightly elevated between 0.74-0.75. Elevated resistive indices are nonspecific and associated with multiple conditions including: Medical renal disease, perinephric fluid collection, hypotension or downstream renal artery stenoses. Renal US on 03/26/16: Mildly echogenic kidneys compatible with medical renal disease. Moderate distention of the urinary bladder with large postvoid residual suggesting right bladder outlet obstruction or, less likely, neurogenic bladder. The prostate is at the upper limits of normal in volume is 28 cc. Home medications: Amlodipine 5 mg twice daily, Losartan 100 mg daily, Clonidine 0.2 mg patch weekly and Furosemide 40 mg daily. He could not tolerate Hydralazine in the past. Treatment: Amlodipine 10 mg daily, Losartan 100 mg daily, Clonidine 0.3 mg patch weekly, Furosemide 40 mg daily, Spironolactone 12.5 mg daily, Doxazosin 2 mg at bedtime, Labetalol 200 mg twice daily and Hydralazine 50 mg three times daily Nicardipine drip at 2.5 Progress: Still requiring Nicardipine drip Orthostatic hypotension associated with medications Recommendations: SBP goal 140-160 Spironolactone increased to 25 mg daily Labetalol changed to Atenolol 25 mg daily Minoxidil will be considered Titrate off Nicardipine Status: Acute Priority: High
[2019-08-16] MEDS: 0.9 % SODIUM CHLORIDE 10 ML SYRINGE IV SCH ×3 (05:44→21:40)
[2019-08-16 05:45] LABS: Hematocrit 27.2 % (41.0-55.0); Hemoglobin 9.4 g/dL (13.5-16.5); Mean Cell Volume 84.9 fL (80.0-100.0); Mean Corpuscular HGB Conc 34.5 g/dL (31.0-36.0); Mean Platelet Volume 9.6 fL (7.4-10.4); Platelet Count 155 K/mcL (140-440); RBC 3.21 M/mcL (4.50-5.90); Red Cell Distribution Width 13.8 % (11.5-14.5); WBC 8.4 K/mcL (4.5-11.0)
[2019-08-16 07:32] LABS: ALT/SGPT 8 U/l (0-40); AST/SGOT 14 U/l (0-37); Albumin 2.9 gm/dL (3.2-5.2); Alkaline Phosphatase 71 U/L (39-117); Bilirubin,Direct < 0.2 mg/dL (0.0-0.3); Bilirubin,Total 0.2 mg/dL (0.0-1.0); Blood Urea Nitrogen 46 mg/dl (8-23); Calcium 8.2 mg/dl (8.6-10.4); Carbon Dioxide 21 mmol/L (22-30); Chloride 107 mmol/L (96-108); Globulin 2.9 gm/dL (2.2-3.7); Glomerular Filtration Rate 12; Glucose 188 mg/dL (70-105); Lactate Dehydrogenase 276 U/L (94-250); Phosphorous 4.5 mg/dL (2.7-4.5); Triglycerides 222 mg/dl (<150); Uric Acid 7.7 mg/dL (2.5-8.0)
[2019-08-16] MEDS: INSULIN LISPRO 1 UNIT/0.01 ML UNIT SQ SCH ×4 (08:30→21:39)
[2019-08-16] MEDS: ATENOLOL 50 MG TABLET PO SCH ×2 (08:30→11:35)
[2019-08-16 09:13] LABS: Basophils % (Manual) 1 % (0-2); Eosinophils % (Manual) 2 % (0-7); Lymphocytes % 30 % (15-49); Monocytes % (Manual) 6 % (1-12); Platelet Estimate NORMAL (NORMAL); RBC Morphology NORMAL (NORMAL); Segmented Neutrophils % 61 % (38-78)
--- NOTE | 2019-08-16 09:28 | Internal Med Progress Note ---
Medical - PN: Subj Patient information: Note initiated : 08/16/19 at 9:24 am Service Date, if different from initiated Date: [] Patient: Dru Burt 63 y/o M admitted on 08/13/19 for falls, weakness. Chief Complaint: [] Interval history: Mr. Burt is a 63 year old M With a history of DM type II, stage V CKD managed by nephrology as outpatient. Patient presents today with worsening weakness fatigue that has evolved over the last few days. He has experienced intermittent falls and this morning patient while trying to get up lost consciousness but fortunately did not sustain major injuries. He was subseque ntly brought into the ER. Symptoms have evolved over the last 1 week progressing from full functionality to inability to get out of bed or feed himself. His came back from work to notice that he did not even have the strength to eat his meals. He denies associated nausea, diarrhea, dysuria or abdominal pain. He denies chest pain palpitation unilateral weakness headache vertigo or dizziness. He feels extremely weak lethargic complains of loss of appetite. He denies pruritus, rash, joint pain or tremors. He further denies using [id number] NSAIDs, herbal supplements or missing r egular medications. Initial work-up in the ER was consistent with acute on chronic renal failure wi th a creatinine 5.3. Troponin elevation at 0.07. Patient was confused lethargic and hypertensive over 220. He was started on metoprolol/ nicardipine drip. Nephrology was consulted in light of hypertensive crisis/acute renal failure Hospitalist service was requested for admission At the time of evaluation patient is accompanied with his Carlee. He was able to answer some of the questions. He endorses to history as above. 08/14-patient doing well. No overnight events. No concerns per staff. No fever chills nausea vomiting. Creatinine down to 4.7. Titrating nicardipine drip down. Systolics around 140. Anticipate discharge in 24 to 48 hours with optimization of renal function and outpatient follow-up with nephrology. Continue PT OT/nutrition support. Mental status back to baseline. Serial troponins downtrending. 08/15-overnight systolics around 200 requiring nicardipine drip. Currently being titrated as per nephrology recommendations. Creatinine 4.9. Nephrology on b oard. Patient feels better since previous day. No family at bedside. No telemetry events. No other concerns expressed to nursing staff 08/16-erratic and labile blood pressures with systolics hovering from 180-110. on nicardipine drip. Nephrology on board. Continue management of hypertension as per nephrology. Complains of orthostasis with lightheadedness during attempts to get out of chair or bed. Creatinine 4.7. at bedside. - Constitutional Vitals: Vital Signs Temp Pulse Resp BP Pulse Ox 98.3 F 66 14 120/80 97 08/16/19 08:29 08/16/19 08:01 08/16/19 08:29 08/16/19 08:33 08/16/19 08:01 Period Temp Pulse Resp BP Sys/Warner Pulse Ox Last 24 Hr 97.7 F-98.9 F 61-73 14-22 86-198/49-87 86-100 Intake and Output 08/15/19 08/16/19 08/16/19 21:59 05:59 13:59 Intake Total 600 280 Output Total 675 520 350 Balance -75 -240 -350 Weight 172 lb 2 oz Intake & Output: Intake & Output 08/15/19 08/16/19 08/16/19 21:59 05:59 13:59 Intake Total 600 280 Output Total 675 520 350 Balance -75 -240 -350 Weight 172 lb 2 oz Intake: Oral 600 280 Output: Void Amount 675 520 350 Other: Meal Dinner Percent of Meal Consumed 100% Feeding Ability Independent Urine Appearance Clear Clear Clear Urine Color Pale Pale Pale Urine Odor Normal Normal General appearance: no acute distress Exam: Alert oriented nonlabored breathing Feels lightheaded no telemetry events No anxiety nondistended abdomen Medical - PN: Obj Da - Labs CBC & Chem 7: 08/16/19 03:50 08/16/19 03:50 Labs: Abnormal Lab Results 08/16/19 08/16/19 08/15/19 03:50 03:50 03:50 RBC 3.21 L Hgb 9.4 L Hct 27.2 L Chloride Carbon Dioxide 21 L 20 L BUN 46 H 49 H Creatinine 4.7 H 4.9 H Glucose 188 H 207 H Uric Acid Calcium 8.2 L 7.9 L Lactate Dehydrogenase 276 H Troponin T Total Protein 5.8 L 5.6 L Albumin 2.9 L 3.0 L Triglycerides 222 H 382 H 08/15/19 08/14/19 08/14/19 03:50 04:00 04:00 RBC 3.16 L Hgb 9.2 L Hct 26.8 L Chloride 109 H Carbon Dioxide 20 L BUN 52 H Creatinine 4.7 H Glucose 219 H Uric Acid 8.6 H Calcium 8.1 L Lactate Dehydrogenase Troponin T 0.05 H* Total Protein 5.4 L Albumin 2.9 L Triglycerides 401 H 08/14/19 08/13/19 08/13/19 04:00 17:55 10:06 RBC 3.04 L Hgb 8.8 L Hct 26.0 L Chloride Carbon Dioxide BUN Creatinine Glucose Uric Acid Calcium Lactate Dehydrogenase Troponin T 0.06 H* 0.07 H* Total Protein Albumin Triglycerides 08/13/19 08/13/19 10:06 10:06 RBC 3.43 L Hgb 10.0 L Hct 29.3 L Chloride Carbon Dioxide BUN 60 H Creatinine 5.3 H* Glucose 271 H Uric Acid Calcium Lactate Dehydrogenase Troponin T Total Protein Albumin Triglycerides Meds: Medications Acetaminophen (Tylenol) 650 mg PO Q4-6HP PRN PRN Reason: PAIN/FEVER > 101 Amlodipine Besylate (Norvasc) 10 mg PO DAILY COUNTS INCLUDE 234 BEDS AT THE [facility] Last Admin: 08/15/19 08:40 Dose: 10 mg Documented by: Atenolol (Tenormin) 25 mg PO DAILY COUNTS INCLUDE 234 BEDS AT THE [facility] Last Admin: 08/16/19 08:30 Dose: 25 mg Documented by: Clonidine HCl (Catapres Tts 3) 1 patch TD WEEKLY COUNTS INCLUDE 234 BEDS AT THE [facility] Last Admin: 08/15/19 13:15 Dose: 1 patch Documented by: Clopidogrel Bisulfate (Plavix) 75 mg PO QDAY COUNTS INCLUDE 234 BEDS AT THE [facility] Last Admin: 08/15/19 08:40 Dose: 75 mg Documented by: Cyanocobalamin (Vitamin B-12) 1,000 mcg PO BID COUNTS INCLUDE 234 BEDS AT THE [facility] Stop: 08/18/19 09:01 Last Admin: 08/15/19 21:41 Dose: 1,000 mcg Documented by: Dextrose (Dextrose 50%) 0 ml IV UD PRN PRN Reason: Hypoglycemia Diagnostic Test (Pha) (Accu-Chek) 1 each FS ACHS COUNTS INCLUDE 234 BEDS AT THE [facility] Last Admin: 08/16/19 07:24 Dose: 1 each Documented by: Docusate Sodium (Colace) 100 mg PO BID COUNTS INCLUDE 234 BEDS AT THE [facility] Last Admin: 08/15/19 21:43 Dose: Not Given Documented by: Doxazosin Mesylate (Cardura) 2 mg PO HS COUNTS INCLUDE 234 BEDS AT THE [facility] Last Admin: 08/15/19 21:42 Dose: 2 mg Documented by: Folic Acid (Folic Acid) 1 mg PO DAILY COUNTS INCLUDE 234 BEDS AT THE [facility] Last Admin: 08/15/19 08:40 Dose: 1 mg Documented by: Furosemide (Lasix) 40 mg PO DAILY COUNTS INCLUDE 234 BEDS AT THE [facility] Last Admin: 08/15/19 08:40 Dose: 40 mg Documented by: Glucose (Insta-Glucose) 15 gm PO PRN PRN PRN Reason: Hypoglycemia Heparin Sodium (Porcine) (Heparin) 5,000 unit SQ Q12 COUNTS INCLUDE 234 BEDS AT THE [facility] Last Admin: 08/15/19 21:41 Dose: 5,000 unit Documented by: Hydralazine HCl (Apresoline) 50 mg PO TID COUNTS INCLUDE 234 BEDS AT THE [facility] Last Admin: 08/15/19 23:34 Dose: 50 mg Documented by: Nicardipine HCl 25 mg/ Sodium (Chloride) 250 mls @ 50 mls/hr IV Q10H COUNTS INCLUDE 234 BEDS AT THE [facility]; Protocol Last Admin: 08/16/19 02:05 Dose: 0.25 mg/hr, 2.5 mls/hr Documented by: Insulin Glargine (Lantus) 20 unit SQ [facility] Last Admin: 08/15/19 21:42 Dose: 20 units Documented by: Insulin Human Lispro (Humalog) 0 unit SQ [facility] COUNTS INCLUDE 234 BEDS AT THE [facility]; Protocol Last Admin: 08/16/19 08:30 Dose: 2 units Documented by: Iron Carb/Multivit/[place]/Folic Acid (Multivitamin W/Minerals) 1 tab PO DAILY COUNTS INCLUDE 234 BEDS AT THE [facility] Last Admin: 08/15/19 08:39 Dose: 1 tab Documented by: Losartan Potassium (Cozaar) 100 mg PO DAILY COUNTS INCLUDE 234 BEDS AT THE [facility] Last Admin: 08/15/19 08:40 Dose: 100 mg Documented by: Ondansetron HCl (Zofran) 4 mg IV Q4-6HP PRN PRN Reason: Nausea And Vomiting Senna/Docusate Sodium (Senna Plus Tablet) 1 tab PO [facility] Last Admin: 08/15/19 21:43 Dose: Not Given Documented by: Sodium Bicarbonate (Sodium Bicarbonate) 1,300 mg PO BID COUNTS INCLUDE 234 BEDS AT THE [facility] Last Admin: 08/15/19 21:42 Dose: 1,300 mg Documented by: Sodium Chloride (Saline Flush) 10 ml IV Q8 COUNTS INCLUDE 234 BEDS AT THE [facility] Last Admin: 08/16/19 05:44 Dose: Not Given Documented by: Spironolactone (Aldactone) 25 mg PO DAILY COUNTS INCLUDE 234 BEDS AT THE [facility] Thiamine HCl (Vitamin B1) 100 mg PO DAILY COUNTS INCLUDE 234 BEDS AT THE [facility] Last Admin: 08/15/19 08:40 Dose: 100 mg Documented by: Medical - PN: A/P - Time Spent With Patient Total time spent is greater than 50% in coordination of care (as documented) at patient's floor/unit and/or counseling patient: 15 - 24 minutes - Narrative A/P Narrative: * Hypertensive crisis with acute renal failure/encephalopathy/elevated troponins-clinically improved. Systolics improving on nicardipine drip. Continue management per nephrology * Acute on chronic kidney disease stage V-nephrology on board. Creatinine 4.7, managed per nephrology * Acute encephalopathy secondary to hypertensive crisis endorgan dysfunction. Clinically resolved with improvement in systolics. * Elevated troponin - Downtrending serial troponin secondary demand ischemia from hypertensive crisis. Continue Plavix * DM type II continue basal prandial insulin * History of lacunar CVA/CAD continue Plavix * Full code * Prophylaxis heparin Plan * Continue hypertension/CKD management per nephrology * Pre-existing well condition management on home meds * Discharge planning once adequate blood pressure control
[2019-08-16] MEDS: HEPARIN 5,000 UNIT/ML VIAL SQ SCH ×2 (11:18→21:40)
[2019-08-16] MEDS: FUROSEMIDE 40 MG TABLET PO SCH (11:19)
[2019-08-16] MEDS: SODIUM BICARBONATE 650 MG TABLET PO SCH ×2 (11:19→21:40)
[2019-08-16] MEDS: LOSARTAN 50 MG TABLET PO SCH (11:20)
[2019-08-16] MEDS: CYANOCOBALAMIN (VITAMIN B-12) 500 MCG TABLET PO SCH ×2 (11:20→21:40)
[2019-08-16] MEDS: hydrALAZINE 25 MG TABLET PO SCH (11:20)
[2019-08-16] MEDS: CLOPIDOGREL 75 MG TABLET PO SCH (11:20)
[2019-08-16] MEDS: amLODIPine 10 MG TABLET PO SCH (11:21)
[2019-08-16] MEDS: SPIRONOLACTONE 25 MG TABLET PO SCH (11:21)
[2019-08-16] MEDS: THIAMINE 100 MG TABLET PO SCH (11:21)
[2019-08-16] MEDS: FOLIC ACID 1 MG TABLET PO SCH (11:21)
[2019-08-16] MEDS: MULTIVIT,THER IRON,CA,FA & MIN 1 TABLET PO SCH (11:21)
[2019-08-16] MEDS: DOCUSATE SODIUM 100 MG CAPSULE PO SCH ×2 (11:34→21:10)
[2019-08-16] MEDS: SENNOSIDES/DOCUSATE SODIUM 1 TAB TABLET PO SCH (21:09)
[2019-08-16] MEDS: INSULIN GLARGINE, HUMAN 1 UNIT/0.01 ML SQ SCH (21:39)
[2019-08-16] MEDS: CHLORTHALIDONE 25 MG TABLET PO SCH (23:06)
[2019-08-16] MEDS ORDERED: LABETALOL 100 MG TABLET PO ONE (23:08)
[2019-08-16] MEDS ORDERED: hydrALAZINE 25 MG TABLET PO SCH (23:13)
[2019-08-17] MEDS: niCARdipine 25 MG in 0.9 % SODIUM CHLORIDE 240 ML IV SCH (05:24)
[2019-08-17] MEDS: 0.9 % SODIUM CHLORIDE 10 ML SYRINGE IV SCH ×3 (05:25→21:57)
[2019-08-17 05:46] LABS: Hematocrit 26.1 % (41.0-55.0); Hemoglobin 8.9 g/dL (13.5-16.5); Mean Cell Volume 85.1 fL (80.0-100.0); Mean Corpuscular HGB Conc 34.2 g/dL (31.0-36.0); Mean Platelet Volume 9.4 fL (7.4-10.4); Platelet Count 151 K/mcL (140-440); RBC 3.07 M/mcL (4.50-5.90); Red Cell Distribution Width 13.7 % (11.5-14.5); WBC 8.2 K/mcL (4.5-11.0)
[2019-08-17 05:55] LABS: ALT/SGPT 11 U/l (0-40); AST/SGOT 13 U/l (0-37); Albumin 3.1 gm/dL (3.2-5.2); Albumin/Globulin Ratio 1.2 (1.0-2.3); Alkaline Phosphatase 73 U/L (39-117); Bilirubin,Direct < 0.2 mg/dL (0.0-0.3); Bilirubin,Total 0.3 mg/dL (0.0-1.0); Blood Urea Nitrogen 49 mg/dl (8-23); Calcium 8.2 mg/dl (8.6-10.4); Carbon Dioxide 24 mmol/L (22-30); Chloride 108 mmol/L (96-108); Globulin 2.5 gm/dL (2.2-3.7); Glomerular Filtration Rate 12; Glucose 141 mg/dL (70-105); Lactate Dehydrogenase 208 U/L (94-250); Phosphorous 4.4 mg/dL (2.7-4.5); Triglycerides 219 mg/dl (<150); Uric Acid 8.1 mg/dL (2.5-8.0)
--- NOTE | 2019-08-17 05:56 | Nephrology Progress Note ---
Subjective Patient information: Note initiated : 08/17/19 at 5:52 am Patient: Dru Burt 63 y/o M admitted on 08/13/19 for falls, weakness. Chief Complaint: Frequent falls Pertinent ROS: Weakness No headache No chest pain No edema Objective - Vital Signs Vital signs: Vital Signs Temp Pulse Pulse Resp BP BP Pulse Ox 08/17/19 05:01 171/55 08/17/19 04:01 99.1 F H 20 172/56 98 08/17/19 03:01 165/61 08/17/19 02:01 175/59 08/17/19 01:01 189/71 08/17/19 00:01 98.9 F 20 177/63 94 08/16/19 23:01 180/62 08/16/19 22:01 171/59 08/16/19 21:01 182/61 08/16/19 20:29 58 L 99 08/16/19 20:01 98.1 F 57 L 20 169/69 98 08/16/19 20:00 98.1 F 20 169/69 98 08/16/19 19:06 62 98 08/16/19 19:01 164/59 08/16/19 18:46 159/57 08/16/19 18:31 159/63 08/16/19 18:16 156/69 08/16/19 18:01 98.1 F 14 156/59 98 08/16/19 17:46 151/65 08/16/19 17:31 162/59 08/16/19 17:18 124/53 08/16/19 17:09 156/70 08/16/19 16:16 134/53 08/16/19 16:01 159/59 08/16/19 15:31 156/57 08/16/19 15:01 153/61 08/16/19 14:31 165/55 08/16/19 14:01 163/63 08/16/19 13:31 150/65 08/16/19 13:01 137/49 08/16/19 12:31 146/77 08/16/19 12:01 157/80 08/16/19 11:31 164/65 08/16/19 11:25 174/61 08/16/19 11:17 113/53 08/16/19 11:01 140/63 08/16/19 10:31 142/55 08/16/19 10:01 135/58 08/16/19 09:31 120/60 08/16/19 09:01 119/62 08/16/19 08:33 120/80 08/16/19 08:29 98.3 F 14 86/63 08/16/19 08:01 66 162/61 97 08/16/19 07:31 65 151/60 96 08/16/19 07:16 65 156/60 96 08/16/19 07:08 67 100 08/16/19 07:01 152/57 08/16/19 06:46 160/55 08/16/19 06:31 146/61 08/16/19 06:16 61 149/58 86 L 08/16/19 06:01 65 154/60 97 08/16/19 05:56 65 97 Intake and Output 08/16/19 08/16/19 08/17/19 13:59 21:59 05:59 Intake Total 859 740 Output Total 600 350 875 Balance 259 390 -875 Intake: IV 19 Cardene 25 MG In Sodium 19 Chloride 0.9% 240 ml @ 5 MG/HR 50 mls/hr IV Q10H [facility] Rx#: [id number] Oral 840 740 Output: Void Amount 600 350 875 Other: Meal Lunch Dinner Percent of Meal Consumed 100% 100% Feeding Ability Assist with Tray Set Up Urine Appearance Clear Clear Clear Urine Color Pale Pale Straw Urine Odor Normal Normal Weight 174 lb 9.6 oz Patient Weight 08/17/19 05:59 Weight 174 lb 9.6 oz Intake & Output: Intake & Output 08/16/19 08/16/19 08/17/19 13:59 21:59 05:59 Intake Total 859 740 Output Total 600 350 875 Balance 259 390 -875 Weight 174 lb 9.6 oz Intake: IV 19 Cardene 25 MG In Sodium 19 Chloride 0.9% 240 ml @ 5 MG/HR 50 mls/hr IV Q10H [facility] Rx#: [id number] Oral 840 740 Output: Void Amount 600 350 875 Other: Meal Lunch Dinner Percent of Meal Consumed 100% 100% Feeding Ability Assist with Tray Set Up Urine Appearance Clear Clear Clear Urine Color Pale Pale Straw Urine Odor Normal Normal - General Appearance General appearance: chronically ill, fatigue EENT: mucous membranes moist Neck: supple Respiratory: clear Cardiology: no edema Gastrointestinal: no tenderness Integumentary: no rash, warm and dry Neurologic: no focal deficit, alert and oriented x3 Musculoskeletal: no deformities Psychiatric: mood/affect appropriate, cooperative - Lab 08/17/19 03:32 08/17/19 03:32 Most recent lab results Calcium 8.2 mg/dl (8.6-10.4) L 08/16/19 03:50 Phosphorus 4.5 mg/dL (2.7-4.5) 08/16/19 03:50 Magnesium 1.7 mg/dL (1.6-2.5) 08/16/19 03:50 Assessment and Plan (1) Chronic kidney disease, stage 5 Dru Burt is a 63-year-old male with chronic kidney disease stage 5, diabetes mellitus type 2 and hypertension presented to ED for weakness and falls for the past 3 days. He was found to have hypertensive urgency and admitted to ICU on IV nicardipine. Chronic kidney disease stage 5 with persistent nephrotic range proteinuria. No uremic symptoms. Progress: Serum creatinine 4.9 with eGFR 12 on 08/17/19. Metabolic acidosis, resolved with Sodium Bicarbonate 1300 mg twice daily. Anemia due to chronic kidney disease. Recommendations: No urgent acute hemodialysis need. Status: Chronic Priority: Medium (2) Hypertensive urgency Resistant hypertension with hypertensive urgency. Previous work up: Renal Doppler US on 01/31/19: No evidence of renal artery stenosis. Chronic medical renal disease with echogenic renal parenchyma and elevated resistive indices bilaterally. Renal US on 05/19/18: Hyperechoic kidneys indicative of medical renal disease. Large post void residual with diffuse urinary bladder wall thickening which typically indicates chronic bladder outlet narrowing (enlarged prostate etc.) or neurogenic bladder. Renal Doppler US on 03/26/16: Both main renal, segmental and interlobular arteries are widely patent. Resistive indices measured throughout the parenchyma of both kidneys are slightly elevated between 0.74-0.75. Elevated resistive indices are nonspecific and associated with multiple conditions including: Medic al renal disease, perinephric fluid collection, hypotension or downstream renal artery stenoses. Renal US on 03/26/16: Mildly echogenic kidneys compatible with medical renal disease. Moderate distention of the urinary bladder with large postvoid residual suggesting right bladder outlet obstruction or, less likely, neurogenic bladder. The prostate is at the upper limits of normal in volume is 28 cc. Home antihypertensive medications: Amlodipine 5 mg twice daily, Losartan 100 mg daily, Clonidine 0.2 mg patch weekly and Furosemide 40 mg daily. He could not tolerate Hydralazine in the past. Home antihypertensive medications: Amlodipine 10 mg daily, Losartan 100 mg daily, Clonidine 0.3 mg patch weekly, Atenolol 25 mg daily, Chlorthalidone 25 mg daily, Spironolactone 25 mg daily, Nicardipine drip Progress: Nicardipine drip off Orthostatic hypotension associated with diabetes mellitus and medications: Doxazosin, Labetalol and Hydralazine discontinued Informed his at bedside Recommendations: SBP goal 140-160 Will monitor closely throughout day Nicardipine discontinued. OK to transfer to medical floor Status: Acute Priority: High
[2019-08-17] MEDS: CHLORTHALIDONE 25 MG TABLET PO SCH (07:24)
[2019-08-17] MEDS: SPIRONOLACTONE 25 MG TABLET PO SCH (07:24)
[2019-08-17] MEDS: amLODIPine 10 MG TABLET PO SCH (07:24)
[2019-08-17] MEDS: LOSARTAN 50 MG TABLET PO SCH (07:24)
[2019-08-17] MEDS: ATENOLOL 50 MG TABLET PO SCH (07:24)
[2019-08-17 07:25] LABS: Eosinophils % (Manual) 7 % (0-7); Lymphocytes % 34 % (15-49); Monocytes % (Manual) 4 % (1-12); Platelet Estimate NORMAL (NORMAL); RBC Morphology NORMAL (NORMAL); Segmented Neutrophils % 55 % (38-78)
--- NOTE | 2019-08-17 09:32 | Internal Med Progress Note ---
Medical - PN: Subj Patient information: Note initiated : 08/17/19 at 9:30 am Service Date, if different from initiated Date: [] Patient: Dur Burt 63 y/o M admitted on 08/13/19 for falls, weakness. Chief Complaint: [] Interval history: Mr. Burt is a 63 year old M With a history of DM type II, stage V CKD managed by nephrology as outpatient. Patient presents today with worsening weakness fatigue that has evolved over the last few days. He has experienced intermittent falls and this morning patient while trying to get up lost consciousness but fortunately did not sustain major injuries. He was subseque ntly brought into the ER. Symptoms have evolved over the last 1 week progressing from full functionality to inability to get out of bed or feed himself. His came back from work to notice that he did not even have the strength to eat his meals. He denies associated nausea, diarrhea, dysuria or abdominal pain. He denies chest pain palpitation unilateral weakness headache vertigo or dizziness. He feels extremely weak lethargic complains of loss of appetite. He denies pruritus, rash, joint pain or tremors. He further denies using [id number] NSAIDs, herbal supplements or missing r egular medications. Initial work-up in the ER was consistent with acute on chronic renal failure wi th a creatinine 5.3. Troponin elevation at 0.07. Patient was confused lethargic and hypertensive over 220. He was started on metoprolol/ nicardipine drip. Nephrology was consulted in light of hypertensive crisis/acute renal failure Hospitalist service was requested for admission At the time of evaluation patient is accompanied with his Carlee. He was able to answer some of the questions. He endorses to history as above. 08/14-patient doing well. No overnight events. No concerns per staff. No fever chills nausea vomiting. Creatinine down to 4.7. Titrating nicardipine drip down. Systolics around 140. Anticipate discharge in 24 to 48 hours with optimization of renal function and outpatient follow-up with nephrology. Continue PT OT/nutrition support. Mental status back to baseline. Serial troponins downtrending. 08/15-overnight systolics around 200 requiring nicardipine drip. Currently being titrated as per nephrology recommendations. Creatinine 4.9. Nephrology on b oard. Patient feels better since previous day. No family at bedside. No telemetry events. No other concerns expressed to nursing staff 08/16-erratic and labile blood pressures with systolics hovering from 180-110. on nicardipine drip. Nephrology on board. Continue management of hypertension as per nephrology. Complains of orthostasis with lightheadedness during attempts to get out of chair or bed. Creatinine 4.7. at bedside. 08/17-patient off nicardipine drip. Per nephrology continue management with close monitoring of hypertension. Will transfer to medical floor today. Target systolics 1 40-1 60 per nephrology. Medication optimization ongoing per nephrology. No overnight fever chills. Improved orthostatic and dizziness. - Constitutional Vitals: Vital Signs Temp Pulse Resp BP Pulse Ox 99.1 F H 58 L 20 144/57 98 08/17/19 04:01 08/16/19 20:29 08/17/19 04:01 08/17/19 08:02 08/17/19 04:01 Period Temp Pulse Resp BP Sys/Warner Pulse Ox Last 24 Hr 98.1 F-99.1 F 57-62 14-20 113-189/49-80 94-99 Intake and Output 08/16/19 08/17/19 08/17/19 21:59 05:59 13:59 Intake Total 740 Output Total 350 875 275 Balance 390 -875 -275 Weight 174 lb 9.6 oz Intake & Output: Intake & Output 08/16/19 08/17/19 08/17/19 21:59 05:59 13:59 Intake Total 740 Output Total 350 875 275 Balance 390 -875 -275 Weight 174 lb 9.6 oz Intake: Oral 740 Output: Void Amount 350 875 275 Other: Meal Dinner Percent of Meal Consumed 100% Feeding Ability Assist with Tray Set Up Urine Appearance Clear Clear Clear Urine Color Pale Straw Straw Urine Odor Normal General appearance: no acute distress Exam: Alert oriented Nonlabored breathing No anxiety Nondistended abdomen No telemetry events Medical - PN: Obj Da - Labs CBC & Chem 7: 08/17/19 03:32 08/17/19 03:32 Labs: Abnormal Lab Results 08/17/19 08/17/19 08/16/19 03:32 03:32 03:50 RBC 3.07 L Hgb 8.9 L Hct 26.1 L Carbon Dioxide 21 L BUN 49 H 46 H Creatinine 4.9 H 4.7 H Glucose 141 H 188 H Uric Acid 8.1 H Calcium 8.2 L 8.2 L Lactate Dehydrogenase 276 H Total Protein 5.6 L 5.8 L Albumin 3.1 L 2.9 L Triglycerides 219 H 222 H 08/16/19 08/15/19 08/15/19 03:50 03:50 03:50 RBC 3.21 L 3.16 L Hgb 9.4 L 9.2 L Hct 27.2 L 26.8 L Carbon Dioxide 20 L BUN 49 H Creatinine 4.9 H Glucose 207 H Uric Acid Calcium 7.9 L Lactate Dehydrogenase Total Protein 5.6 L Albumin 3.0 L Triglycerides 382 H Meds: Medications Acetaminophen (Tylenol) 650 mg PO Q4-6HP PRN PRN Reason: PAIN/FEVER > 101 Amlodipine Besylate (Norvasc) 10 mg PO DAILY [facility] Last Admin: 08/17/19 07:24 Dose: 10 mg Documented by: Atenolol (Tenormin) 25 mg PO DAILY [facility] Last Admin: 08/17/19 07:24 Dose: 25 mg Documented by: Chlorthalidone (Hygroton) 25 mg PO DAILY [facility] Last Admin: 08/17/19 07:24 Dose: 25 mg Documented by: Clonidine HCl (Catapres Tts 3) 1 patch TD WEEKLY [facility] Last Admin: 08/15/19 13:15 Dose: 1 patch Documented by: Clopidogrel Bisulfate (Plavix) 75 mg PO QDAY [facility] Last Admin: 08/16/19 11:20 Dose: 75 mg Documented by: Cyanocobalamin (Vitamin B-12) 1,000 mcg PO BID [facility] Stop: 08/18/19 09:01 Last Admin: 08/16/19 21:40 Dose: 1,000 mcg Documented by: Dextrose (Dextrose 50%) 0 ml IV UD PRN PRN Reason: Hypoglycemia Diagnostic Test (Pha) (Accu-Chek) 1 each FS ACHS [facility] Last Admin: 08/16/19 21:38 Dose: 1 each Documented by: Docusate Sodium (Colace) 100 mg PO BID [facility] Last Admin: 08/16/19 21:10 Dose: Not Given Documented by: Folic Acid (Folic Acid) 1 mg PO DAILY [facility] Last Admin: 08/16/19 11:21 Dose: 1 mg Documented by: Glucose (Insta-Glucose) 15 gm PO PRN PRN PRN Reason: Hypoglycemia Heparin Sodium (Porcine) (Heparin) 5,000 unit SQ Q12 [facility] Last Admin: 08/16/19 21:40 Dose: 5,000 unit Documented by: Insulin Glargine (Lantus) 20 unit SQ HS [facility] Last Admin: 08/16/19 21:39 Dose: 20 units Documented by: Insulin Human Lispro (Humalog) 0 unit SQ [facility]; Protocol Last Admin: 08/16/19 21:39 Dose: 3 units Documented by: Iron Carb/Multivit/Danby/Folic Acid (Multivitamin W/Minerals) 1 tab PO DAILY [facility] Last Admin: 08/16/19 11:21 Dose: 1 tab Documented by: Losartan Potassium (Cozaar) 100 mg PO DAILY [facility] Last Admin: 08/17/19 07:24 Dose: 100 mg Documented by: Ondansetron HCl (Zofran) 4 mg IV Q4-6HP PRN PRN Reason: Nausea And Vomiting Senna/Docusate Sodium (Senna Plus Tablet) 1 tab PO HS [facility] Last Admin: 08/16/19 21:09 Dose: Not Given Documented by: Sodium Bicarbonate (Sodium Bicarbonate) 1,300 mg PO BID [facility] Last Admin: 08/16/19 21:40 Dose: 1,300 mg Documented by: Sodium Chloride (Saline Flush) 10 ml IV Q8 [facility] Last Admin: 08/17/19 05:25 Dose: 10 ml Documented by: Spironolactone (Aldactone) 25 mg PO DAILY [facility] Last Admin: 08/17/19 07:24 Dose: 25 mg Documented by: Thiamine HCl (Vitamin B1) 100 mg PO DAILY [facility] Last Admin: 08/16/19 11:21 Dose: 100 mg Documented by: Medical - PN: A/P - Time Spent With Patient Total time spent is greater than 50% in coordination of care (as documented) at patient's floor/unit and/or counseling patient: 15 - 24 minutes - Narrative A/P Narrative: * Hypertensive crisis with acute renal failure/encephalopathy/elevated troponins-clinically improved. Off nicardipine drip. Target systolics per n ephrology around 140-1 60. Ongoing medication changes per nephrology * Acute on chronic kidney disease stage V-nephrology on board. Creatinine 4.9 * Acute encephalopathy secondary to hypertensive crisis endorgan dysfunction. Now back at baseline * Elevated troponin - Downtrending serial troponin secondary demand ischemia from hypertensive crisis. Continue Plavix * DM type II well controlled on continue basal prandial insulin. Blood sugar 141 fasting * History of lacunar CVA/CAD continue Plavix * Full code * Prophylaxis heparin Plan * Continue hypertension/CKD management per nephrology * Transfer to medical floor * Pre-existing well condition management on home meds * Discharge planning per case management
[2019-08-17] MEDS: FOLIC ACID 1 MG TABLET PO SCH (09:41)
[2019-08-17] MEDS: DOCUSATE SODIUM 100 MG CAPSULE PO SCH ×2 (09:41→21:56)
[2019-08-17] MEDS: SODIUM BICARBONATE 650 MG TABLET PO SCH ×2 (09:41→21:57)
[2019-08-17] MEDS: CLOPIDOGREL 75 MG TABLET PO SCH (09:41)
[2019-08-17] MEDS: MULTIVIT,THER IRON,CA,FA & MIN 1 TABLET PO SCH (09:41)
[2019-08-17] MEDS: CYANOCOBALAMIN (VITAMIN B-12) 500 MCG TABLET PO SCH ×2 (09:41→21:57)
[2019-08-17] MEDS: INSULIN LISPRO 1 UNIT/0.01 ML UNIT SQ SCH ×4 (09:41→21:56)
[2019-08-17] MEDS: THIAMINE 100 MG TABLET PO SCH (09:42)
[2019-08-17] MEDS: HEPARIN 5,000 UNIT/ML VIAL SQ SCH ×2 (09:42→21:56)
--- NOTE | 2019-08-17 14:05 | Discharge Summary ---
Medical - DS: Prov Patient information: Note initiated : 08/17/19 at 2:00 pm Service Date, if different from initiated Date: [] Patient: Dru Burt 63 y/o M admitted on 08/13/19 for falls, weakness. Chief Complaint: [] Date of admission: 08/13/19 15:06 Discharge date: 08/18/19 Primary care physician: Wnog Maguire Consults: 08/13/19 Consult to Physician [CONS] Stat Comment: Consulting Provider: Devin Yanes Reason For Exam: Physician to Consult 08/13/19 14:59 Consult to Physician [CONS] Routine Comment: Consulting Provider: Susan Myers Reason For Exam: Physician to Consult Medical - DS: Meds - Discharge Medications Prescriptions: Spironolactone [Aldactone] 25 mg PO DAILY #30 tab cloNIDine TTS 2 [Catapres Tts 2] 1 patch TD Sa@0800 #4 patch Losartan [Cozaar] 100 mg PO DAILY #30 tab Chlorthalidone [Hygroton] 25 mg PO DAILY #30 tab Atenolol [Tenormin] 12.5 mg PO DAILY #20 tab Active and Home Medications: Home Medications cholecalciferol (vitamin D3) 5,000 unit capsule 5,000 unit PO QDAY cap 01/14/16 [History Confirmed 08/13/19 Last Taken Unknown] clopidogrel 75 mg tablet 75 mg PO QDAY 12/04/18 [History Confirmed 08/13/19 Last Taken Unknown] insulin aspart U-100 100 unit/mL (3 mL) subcutaneous pen 1 each SUB-Q TIDAC #15 ml 06/07/19 [History Confirmed 08/13/19 Last Taken Unknown] insulin degludec 100 unit/mL (3 mL) subcutaneous pen 20 unit SUB-Q HS #15 ml 06/07/19 [History Confirmed 08/13/19 Last Taken Unknown] amLODIPine BESYLATE [Amlodipine Besylate] 10 mg PO DAILY 06/25/19 [History Confirmed 08/13/19 Last Taken Unknown] clonidine 0.2 mg/24 hr weekly transdermal patch 1 patch TRANSDERMA QWEEK #4 patch 07/18/19 [Rx Confirmed 08/13/19 Last Taken Unknown] furosemide 40 mg tablet 40 mg PO QDAY #30 tab 07/18/19 [Rx Confirmed 08/13/19 Last Taken Unknown] sodium bicarbonate 650 mg tablet 1,300 mg PO BID #120 tab 07/18/19 [Rx Confirmed 08/13/19 Last Taken Unknown] Doxazosin [Cardura] 8 mg PO HS 08/13/19 [History Confirmed 08/13/19 Last Taken Unknown] Losartan [Cozaar] 25 mg PO DAILY 08/13/19 [History Confirmed 08/13/19 Last Taken Unknown] hydrALAZINE [Apresoline] 25 mg PO TID 08/13/19 [History Confirmed 08/13/19 Last Taken Unknown] Home Medications cholecalciferol (vitamin D3) 5,000 unit capsule 5,000 unit PO QDAY cap 01/14/16 [History Confirmed 08/13/19 Last Taken Unknown] clopidogrel 75 mg tablet 75 mg PO QDAY 12/04/18 [History Confirmed 08/13/19 Last Taken Unknown] insulin aspart U-100 100 unit/mL (3 mL) subcutaneous pen 1 each SUB-Q TIDAC #15 ml 06/07/19 [History Confirmed 08/13/19 Last Taken Unknown] insulin degludec 100 unit/mL (3 mL) subcutaneous pen 20 unit SUB-Q HS #15 ml 06/07/19 [History Confirmed 08/13/19 Last Taken Unknown] amLODIPine BESYLATE [Amlodipine Besylate] 10 mg PO DAILY 06/25/19 [History Confirmed 08/13/19 Last Taken Unknown] sodium bicarbonate 650 mg tablet 1,300 mg PO BID #120 tab 07/18/19 [Rx Confirmed 08/13/19 Last Taken Unknown] Chlorthalidone [Hygroton] 25 mg PO DAILY #30 tab 08/17/19 [Rx Last Taken Unknown] Losartan [Cozaar] 100 mg PO DAILY #30 tab 08/17/19 [Rx Last Taken Unknown] Spironolactone [Aldactone] 25 mg PO DAILY #30 tab 08/17/19 [Rx Last Taken Unknown] Atenolol [Tenormin] 12.5 mg PO DAILY #20 tablet 08/18/19 [Rx Last Taken Unknown] cloNIDine TTS 2 [Catapres Tts 2] 1 patch TD Sa@0800 #4 patch 08/18/19 [Rx Last Taken Unknown] Medical - DS: Hosp Hospital Course: Mr. Burt is a 63 year old M With a history of DM type II, stage V CKD managed by nephrology as outpatient. Patient presents today with worsening weakness fatigue that has evolved over the last few days. He has experienced intermittent falls and this morning patient while trying to get up lost co nsciousness but fortunately did not sustain major injuries. He was subsequently brought into the ER. Symptoms have evolved over the last 1 week progressing from full functionality to inability to get out of bed or feed himself. His came back from work to notice that he did not even have the strength to eat his meals. He denies associated nausea, diarrhea, dysuria or abdominal pain. He denies chest pain palpitation unilateral weakness headache vertigo or dizziness. He feels extremely weak lethargic complains of loss of appetite. He denies pruritus, rash, joint pain or tremors. He further denies using [id number] NSAIDs, herbal supplements or missing regular medications. Initial work-up in the ER was consistent with acute on chronic renal failure with a creatinine 5.3. Troponin elevation at 0.07. Patient was confused lethargic and hypertensive over 220. He was started on metoprolol/ nicardipine drip. Nephrology was consulted in light of hypertensive crisis/acute renal failure Hospitalist service was requested for admission At the time of evaluation patient is accompanied with his Carlee. He was able to answer some of the questions. He endorses to history as above. 08/14-patient doing well. No overnight events. No concerns per staff. No fever chills nausea vomiting. Creatinine down to 4.7. Titrating nicardipine drip down. Systolics around 140. Anticipate discharge in 24 to 48 hours with optimization of renal function and outpatient follow-up with nephrology. Continue PT OT/nutrition support. Mental status back to baseline. Serial troponins downtrending. 08/15-overnight systolics around 200 requiring nicardipine drip. Currently being titrated as per nephrology recommendations. Creatinine 4.9. Nephrology on board. Patient feels better since previous day. No family at bedside. No telemetry events. No other concerns expressed to nursing staff 08/16-erratic and labile blood pressures with systolics hovering from 180-110. on nicardipine drip. Nephrology on board. Continue management of hypertension as per nephrology. Complains of orthostasis with lightheadedness during attempts to get out of chair or bed. Creatinine 4.7. at bedside. 08/17-patient off nicardipine drip. Per nephrology continue management with close monitoring of hypertension. Will transfer to medical floor today. Target systolics 1 40-1 60 per nephrology. Medication optimization ongoing per nephrology. No overnight fever chills. Improved orthostatic and dizziness. 08/18 No overnight events. Further adjustment in blood pressure per nephrology. Follow-up nephrology outpatient. Stable for discharge Discharge diagnosis: Hypertensive emergency with acute renal failure and encephalopathy and elev Secondary discharge diagnosis: Elevated troponin next acute on chronic kidney disease diabetes history of stroke - Time Spent with Patient Total time spent providing and/or coordinating discharge services: Greater than 30 minutes Medical - DS: Exam - Constitutional Vitals: Vital Signs Temp Pulse Pulse Resp BP BP Pulse Ox 08/17/19 11:11 145/65 08/17/19 09:01 130/54 08/17/19 08:02 144/57 08/17/19 07:01 184/65 08/17/19 06:01 162/58 08/17/19 05:01 171/55 08/17/19 04:01 99.1 F H 20 172/56 98 08/17/19 03:01 165/61 08/17/19 02:01 175/59 08/17/19 01:01 189/71 08/17/19 00:01 98.9 F 20 177/63 94 08/16/19 23:01 180/62 08/16/19 22:01 171/59 08/16/19 21:01 182/61 08/16/19 20:29 58 L 99 08/16/19 20:01 98.1 F 57 L 20 169/69 98 08/16/19 20:00 98.1 F 20 169/69 98 08/16/19 19:06 62 98 08/16/19 19:01 164/59 08/16/19 18:46 159/57 08/16/19 18:31 159/63 08/16/19 18:16 156/69 08/16/19 18:01 98.1 F 14 156/59 98 08/16/19 17:46 151/65 08/16/19 17:31 162/59 08/16/19 17:18 124/53 08/16/19 17:09 156/70 08/16/19 16:16 134/53 08/16/19 16:01 159/59 08/16/19 15:31 156/57 08/16/19 15:01 153/61 08/16/19 14:31 165/55 08/16/19 14:01 163/63 Intake and Output 08/17/19 08/17/19 08/17/19 05:59 13:59 21:59 Intake Total 500 Output Total 875 275 Balance -875 225 Intake: Oral 500 Output: Void Amount 875 275 Other: Meal Breakfast Percent of Meal Consumed 100% Urine Appearance Clear Clear Urine Color Straw Straw Weight 79.197 kg Patient Weight 08/18/19 05:59 Weight 79.197 kg Medical - DS: Data Labs on day of discharge: Labs from last 24 hours 08/17/19 08/17/19 03:32 03:32 WBC 8.2 RBC 3.07 L Hgb 8.9 L Hct 26.1 L MCV 85.1 MCH 29.1 MCHC 34.2 RDW 13.7 Plt Count 151 MPV 9.4 Total Counted 100 Seg Neutrophils % 55 Band Neutrophils % Not Reportable Lymphocytes % 34 Monocytes % (Manual) 4 Eosinophils % (Manual) 7 Platelet Estimate Normal RBC Morphology Normal Sodium 144 Potassium 4.1 Chloride 108 Carbon Dioxide 24 Anion Gap 12.0 BUN 49 H Creatinine 4.9 H GFR Calculation 12 Glucose 141 H Uric Acid 8.1 H Calcium 8.2 L Phosphorus 4.4 Magnesium 1.7 Total Bilirubin 0.3 Direct Bilirubin < 0.2 GGT 27 AST 13 ALT 11 Alkaline Phosphatase 73 Lactate Dehydrogenase 208 Total Protein 5.6 L Albumin 3.1 L Globulin 2.5 Albumin/Globulin Ratio 1.2 Triglycerides 219 H Medical - DS: A/P - Patient/Caregiver Discharge Instructions Activity: increase activity as tolerated Diet: Cardiac, Consistent Carbohydrate Prescriptions: Spironolactone [Aldactone] 25 mg PO DAILY #30 tab cloNIDine TTS 2 [Catapres Tts 2] 1 patch TD Sa@0800 #4 patch Losartan [Cozaar] 100 mg PO DAILY #30 tab Chlorthalidone [Hygroton] 25 mg PO DAILY #30 tab Atenolol [Tenormin] 12.5 mg PO DAILY #20 tab - Follow up Plan Follow up with: Wong Maguire MD [Primary Care Provider] - Susan Myers MD [Physician] - Disposition: Home Health Service Prognosis: Undetermined Rehab Potential: Fair Overall status at discharge: patient is progressing back to baseline
[2019-08-17] MEDS ORDERED: cloNIDine TTS 2 1 PATCH PATCH TD SCH (17:30)
[2019-08-17] MEDS: INSULIN GLARGINE, HUMAN 1 UNIT/0.01 ML SQ SCH (21:56)
[2019-08-17] MEDS: SENNOSIDES/DOCUSATE SODIUM 1 TAB TABLET PO SCH (21:57)
[2019-08-18] MEDS: 0.9 % SODIUM CHLORIDE 10 ML SYRINGE IV SCH (05:23)
--- NOTE | 2019-08-18 06:50 | Nephrology Progress Note ---
Subjective Patient information: Note initiated : 08/18/19 at 6:46 am Patient: Dru Burt 63 y/o M admitted on 08/13/19 for falls, weakness. Chief Complaint: Weakness Pertinent ROS: Weakness Improved ambulation Feels better No headache No chest pain No edema Objective - Vital Signs Vital signs: Vital Signs Temp Pulse Resp BP BP Pulse Ox 08/17/19 23:00 98.3 F 66 16 165/73 98 08/17/19 20:12 57 L 98 08/17/19 18:55 97.3 F 55 L 16 139/56 99 08/17/19 17:43 97.4 F 14 138/68 96 08/17/19 14:02 137/64 08/17/19 13:34 130/58 08/17/19 11:11 145/65 08/17/19 09:01 130/54 08/17/19 08:02 144/57 08/17/19 07:01 184/65 Intake and Output 08/17/19 08/18/19 08/18/19 21:59 05:59 13:59 Intake Total 930 Output Total 350 625 Balance 580 -625 Intake: Oral 930 Output: Urine Catheter Amount 200 Void Amount 350 425 Other: Meal Dinner snack Percent of Meal Consumed 100% 100% Feeding Ability Assist with Tray Set Up Assist with Tray Set Up Urine Appearance Clear Clear Urine Color Pale Pale Urine Odor Normal Weight 174 lb 5 oz Intake & Output: Intake & Output 08/17/19 08/18/19 08/18/19 21:59 05:59 13:59 Intake Total 930 Output Total 350 625 Balance 580 -625 Weight 174 lb 5 oz Intake: Oral 930 Output: Urine Catheter Amount 200 Void Amount 350 425 Other: Meal Dinner snack Percent of Meal Consumed 100% 100% Feeding Ability Assist with Tray Set Up Assist with Tray Set Up Urine Appearance Clear Clear Urine Color Pale Pale Urine Odor Normal - General Appearance General appearance: fatigue EENT: mucous membranes moist Neck: supple Respiratory: clear Cardiology: no edema Gastrointestinal: no tenderness Integumentary: warm and dry Neurologic: no focal deficit, alert and oriented x3 Musculoskeletal: no deformities Psychiatric: mood/affect appropriate, cooperative - Lab 08/17/19 03:32 08/17/19 03:32 Most recent lab results Calcium 8.2 mg/dl (8.6-10.4) L 08/17/19 03:32 Phosphorus 4.4 mg/dL (2.7-4.5) 08/17/19 03:32 Magnesium 1.7 mg/dL (1.6-2.5) 08/17/19 03:32 Assessment and Plan (1) Chronic kidney disease, stage 5 Dru Burt is a 63-year-old male with chronic kidney disease stage 5, diabetes mellitus type 2 and hypertension presented to ED for weakness and falls for the past 3 days. He was found to have hypertensive urgency and admitted to ICU on IV nicardipine. Chronic kidney disease stage 5 with persistent nephrotic range proteinuria. No uremic symptoms. Progress: Serum creatinine 4.9 with eGFR 12 on 08/17/19. Metabolic acidosis, resolved with Sodium Bicarbonate 1300 mg twice daily. Anemia due to chronic kidney disease. Recommendations: No urgent acute hemodialysis need. Status: Chronic Priority: Medium (2) Hypertensive urgency Resistant hypertension with hypertensive urgency. Previous work up: Renal Doppler US on 01/31/19: No evidence of renal artery stenosis. Chronic medical renal disease with echogenic renal parenchyma and elevated resistive indices bilaterally. Renal US on 05/19/18: Hyperechoic kidneys indicative of medical renal disease. Large post void residual with diffuse urinary bladder wall thickening which typically indicates chronic bladder outlet narrowing (enlarged prostate etc.) or neurogenic bladder. Renal Doppler US on 03/26/16: Both main renal, segmental and interlobular arteries are widely patent. Resistive indices measured throughout the parenchyma of both kidneys are slightly elevated between 0.74-0.75. Elevated resistive indices are nonspecific and associated with multiple conditions including: Medical renal disease, perinephric fluid collection, hypotension or downstream renal artery stenoses. Renal US on 03/26/16: Mildly echogenic kidneys compatible with medical renal disease. Moderate distention of the urinary bladder with large postvoid residual suggesting right bladder outlet obstruction or, less likely, neurogenic bladder. The prostate is at the upper limits of normal in volume is 28 cc. Home antihypertensive medications: Amlodipine 5 mg twice daily, Losartan 100 mg daily, Clonidine 0.2 mg patch weekly and Furosemide 40 mg daily. He could not tolerate Hydralazine in the past. Current antihypertensive medications: Amlodipine 10 mg daily, Losartan 100 mg daily, Clonidine 0.2 mg patch weekly, Atenolol 12.5 mg daily, Chlorthalidone 25 mg daily, Spironolactone 25 mg daily Progress: Orthostatic hypotension associated with diabetes mellitus and medications: Doxazosin, Labetalol and Hydralazine discontinued Bradycardia: Atenolol and clonidine dose decreased Recommendations: Continue current regimen with SBP goal 140-160 Need to tolerate high supine SBP to avoid very low standing SBP with falls Outpatient follow up Status: Acute Priority: High
[2019-08-18] MEDS ORDERED: cloNIDine TTS 2 1 PATCH PATCH TD SCH (08:00)
[2019-08-18] MEDS: SODIUM BICARBONATE 650 MG TABLET PO SCH (08:40)
[2019-08-18] MEDS: THIAMINE 100 MG TABLET PO SCH (08:40)
[2019-08-18] MEDS: FOLIC ACID 1 MG TABLET PO SCH (08:40)
[2019-08-18] MEDS: amLODIPine 10 MG TABLET PO SCH (08:40)
[2019-08-18] MEDS: CHLORTHALIDONE 25 MG TABLET PO SCH (08:40)
[2019-08-18] MEDS: SPIRONOLACTONE 25 MG TABLET PO SCH (08:41)
[2019-08-18] MEDS: DOCUSATE SODIUM 100 MG CAPSULE PO SCH (08:41)
[2019-08-18] MEDS: INSULIN LISPRO 1 UNIT/0.01 ML UNIT SQ SCH ×2 (08:41→11:50)
[2019-08-18] MEDS: CYANOCOBALAMIN (VITAMIN B-12) 500 MCG TABLET PO SCH (08:41)
[2019-08-18] MEDS: MULTIVIT,THER IRON,CA,FA & MIN 1 TABLET PO SCH (08:41)
[2019-08-18] MEDS: LOSARTAN 50 MG TABLET PO SCH (08:41)
[2019-08-18] MEDS: HEPARIN 5,000 UNIT/ML VIAL SQ SCH (08:42)
[2019-08-18] MEDS: CLOPIDOGREL 75 MG TABLET PO SCH (08:50)
[2019-08-18] MEDS ORDERED: ATENOLOL 50 MG TABLET PO SCH (09:00)
[2019-08-19] MEDS ORDERED: ATENOLOL 25 MG TABLET PO SCH (09:00)
[2019-08-19] MEDS ORDERED: cloNIDine TTS 2 1 PATCH PATCH TD SCH (10:00)
== END 2019-08-18 12:50 | disposition home health service (06) | DRG 305 ==
LOC: ED 10:19 → ICU 15:06
PROVIDERS: ADMIT Internal Medicine; ATTEND Internal Medicine